=== PATIENT | female | born 1975 | race Caucasian/White ===

== ENCOUNTER 2018-07-13 08:20 | Day surgery (SDC) | payer OTHER, SELFPAY ==
--- NOTE | 2018-07-13 06:52 | W.COLOREPORT ---
Date of service: 07/13/18 Time of Service: 10:08 Colonoscopy Report Date of procedure: 07/13/18 Pre-op diagnosis general: Hx of polyps and Family History of colon Cancer Post-op diagnosis procedure note: same (mild sigmoid diverticulosis, rectal polyp) Procedure: Colonoscopy with polypectomy by cold forceps Surgeon: Tonie Layton Anesthesia proc note operative: MAC (Gary Mike, E [employer] PROJECT MANAGER / ASA 2) Estimated blood loss (mL): 2 Pathology: other (rectal polyp) Complications: None Disposition: same day Indications: Mrs. Quigley is a pleasant 42-year-old female who was seen in the office for another colonoscopy. Her last colonoscopy was in 2012 at which time she had a adenomatous polyp. She also has a family history of colon cancer. Risks, benefits and complications were reviewed with her and she wished to proceed. No guarantees were given or implied. Prep: Miralax/Dulcolax Procedure Start Time: 10:09 Procedure End Time: 10:45 Retraction Time: 23 minutes Findings: 1. Mild diverticulosis of the sigmoid colon 2. Rectal polyp Procedure Description: After informed consent was obtained the patient was taken to the procedure room and placed in a left decubitous position. Monitors were applied and a time out was done. The patients name, date of , procedure, allergies to medications and metal in their body was reviewed. The patient was then sedated. Once sedated and comfortable a rectal exam was done. External exam was normal. Internal exam revealed a normal sphincter tone and no palpable masses. The scope was then introduced and retro-flexed. No internal hemorrhoids were identified. The scope was then advanced to the cecum without difficulty. The TI and appendiceal orifice were identified. The prep was good. The scope was then slowly retracted over 23 minutes back into the rectum. One polyp was removed in the rectum with cold forceps. The scope was removed and the patient was woken up and taken back to Same day surgery in stable condition. The patient tolerated the procedure well and there were no immediate complications. Follow up: The patient should follow up in 5 years unless they develop changes in bowel habits or other new gastrointestinal complaints.
--- NOTE | 2018-07-13 06:54 | PDOC.DSDIS_ITS ---
Discharge Plan Disposition Patient Disposition: HOME Condition: Good Discharge Details Reason For Visit: Hx of polyps, Family history of colon cancer Attending Provider: Tonie Layton Primary Care Provider: Yessenia Alston Home Meds and New Rx's Prescriptions: Continue valacyclovir 1,000 MG tablet 2,000 mg PO Q12H PRN Qty: 32 RF: 4 levothyroxine 88 mcg tablet 88 mcg PO DAILY Qty: 30 RF: 3 multivitamin 1 EACH capsule 1 ea PO DAILY RF: 0 omega 4-khu-tti-fish oil 1 EACH capsule 1 ea PO DAILY RF: 0 Discharge Instructions Instructions: Colonoscopy (DC), Diverticulosis (DC) Additional Instructions: Findings: 1. small polyp 2. mild diverticulosis Follow up: 5 years Please call if you develop: fevers >101.5 Nausea or Vomiting Abdominal pain that is not transient New Medications: Other: 1. Because there will be medication in your system for the next 24 hours, you may feel a little sleepy. Your coordination will be affected. Therefore: a. Do not drive or operate dangerous equipment for 24 hours. b. Do not drink alcohol beverages for 24 hours (not even beer). c. Plan to go home and rest for the day. 2. Generally there are no restrictions on your activity after a day or so has gone by, but you may feel a bit fatigued for a few days. 3 After you arrive home you may have a light meal and return to a normal diet as you can tolerate it without feeling sick to your stomach. 4. After surgery, you may feel pain or discomfort. This should be only transient , but if it persists please contact your doctor. 5. If there are any questions regarding the findings of your procedure, please feel free to contact your doctor. 6. If you are unable to contact your doctor with a problem, contact the hospital at [phone]. 7. Continue all your regular medications unless directed otherwise. I understand the above instructions and have no questions. Signature of Patient or Responsible Adult Escort Date/Time Name of Responsible Adult Escort Signature of Nurse Date/Time Activity:: Activity as Tolerated Diet:: high fiber diet Discharge Orders Discharge Orders: Discharge Order (Routine); Ordered 07/13/18 Ordered By: Tonie Layton DS: Diagnosis Discharge Diagnosis (1) S/P colonoscopy: Status: Acute (2) Diverticulosis: Status: Acute
[2018-07-13 08:40] VITALS: BP 126/90; PULSE 119; RESP 16; TEMP 37; O2SAT 98
[2018-07-13] MEDS: Lactated Ringers 1,000 ML 80 ML IV (08:55)
--- NOTE | 2018-07-13 10:43 | BOWEL_PTH ---
PATIENT: Alan Pinto LOC: [facility] U#:[id number] AGE/SX: 42/F ROOM: RE07/13/[address]: Tonie Layton MD : 1975 BED: DIS: 07/13/2018 SPEC #: [id number] RECD: 07/13/18 12:38 STATUS: JONELLE REQ #: [id number] DAFNE: 07/13/18 10:[address]: Tonie Layton DEPT: Surgical Specimen RECD BY: Ninfa Carty ENTERED: 07/13/18 12:39 SP TYPE: Bowel OTHR DR: Yessenia Alston MD Tissues: 1 - BIOPSY BOWEL Procedures: GROSS AND MICRO LEVEL 4 Comments: [id number]
[2018-07-13 11:35] VITALS: BP 104/70; PULSE 82; RESP 16; TEMP 37.4; O2SAT 100
== END 2018-07-13 12:03 | disposition home or self-care (01) ==
PROVIDERS: PCP Family Medicine; Visit Provider Surgery
PROC: 0DJD8ZZ Inspection of Lower Intestinal Tract, Via Natural or Artificial Opening Endoscopic (ICD-10-PCS; CPT 45378; principal; 2018-07-13 10:15)
DX: Z12.11 Encounter for screening for malignant neoplasm of colon (principal); Z86.010 Personal history of colon polyps; Z80.0 Family history of malignant neoplasm of digestive organs; K57.30 Diverticulosis of large intestine without perforation or abscess without bleeding; K62.1 Rectal polyp
CPT/HCPCS: 45380; 81025; 88305; J2250; J3010

== ENCOUNTER 2019-03-18 07:43 | Outpatient (CLI) | payer OTHER, SELFPAY ==
--- NOTE | 2019-03-18 08:10 | DI.RAD_ITS ---
SYMPTOM/DIAGNOSISs: BACK PAIN M54.9 DORSALGIA LUMBOSACRAL SPINE: The vertebral bodies and disc spaces are intact. The pedicles, spinous and transverse processes are unremarkable. There are degenerative changes involving the facet joints. The sacrum and sacroiliac joints are unremarkable. SUMMARY: Degenerative changes involving the facet joints are most pronounced at L3 through S1. The examination is otherwise unremarkable.
== END 2019-03-18 08:03 ==
PROVIDERS: PCP Family Medicine; Visit Provider Internal Medicine
DX: M54.5 Low back pain (principal); M47.817 Spondylosis without myelopathy or radiculopathy, lumbosacral region
CPT/HCPCS: 72110

== ENCOUNTER 2019-05-21 07:03 | Outpatient (CLI) | payer OTHER, SELFPAY ==
[2019-05-21 08:31] LABS: Glucose 93 mg/dL (70-100); TSH 5.62 uIU/mL (0.36-3.74)
== END 2019-05-21 07:23 ==
PROVIDERS: PCP Family Medicine; Visit Provider Family Medicine
DX: E03.9 Hypothyroidism, unspecified (principal); Z13.1 Encounter for screening for diabetes mellitus
CPT/HCPCS: 36415; 82947; 84443

== ENCOUNTER 2019-08-17 07:02 | Outpatient (CLI) | payer OTHER, SELFPAY ==
[2019-08-17 08:27] LABS: Calculated LDL 157 mg/dL; Cholesterol 224 mg/dL (<200); Glucose 91 mg/dL (74-106); HDL Cholesterol 55 mg/dL (40-60); TSH 4.52 uIU/mL (0.36-3.74); Triglyceride 62 mg/dL (<150)
== END 2019-08-17 07:22 ==
PROVIDERS: PCP Family Medicine; Visit Provider Family Medicine
DX: E03.9 Hypothyroidism, unspecified (principal); Z13.220 Encounter for screening for lipoid disorders; Z13.1 Encounter for screening for diabetes mellitus
CPT/HCPCS: 36415; 80061; 82947; 84443

== ENCOUNTER 2019-12-16 12:36 | Outpatient (REF) | payer OTHER, SELFPAY ==
[2019-12-17 14:21] LABS: Chlamydia Result Negative (Negative); GC Result Negative (Negative)
== END 2019-12-16 12:56 ==
LOC: LBN 12:36
PROVIDERS: PCP Family Medicine; Visit Provider Nurse Practitioner Family
DX: Z11.3 Encounter for screening for infections with a predominantly sexual mode of transmission (principal)
CPT/HCPCS: 87491; 87591

== ENCOUNTER 2019-12-20 03:24 | Outpatient (CLI) | payer OTHER, SELFPAY ==
[2019-12-20 14:06] LABS: TSH 2.25 uIU/mL (0.36-3.74)
[2019-12-21 10:51] LABS: Hepatitis B Surface Ag Negative (Negative)
[2019-12-21 11:06] LABS: HIV-1/2 Ag & Ab Screen Negative (Negative)
[2019-12-21 11:08] LABS: Hepatitis C Ab w Rflx HCV PCR Negative (Negative)
[2019-12-22 11:04] LABS: Syphilis Total Ab w/Reflex Nonreactive (Nonreactive)
== END 2019-12-20 03:44 ==
PROVIDERS: PCP Family Medicine; Visit Provider Nurse Practitioner Family
DX: E03.9 Hypothyroidism, unspecified (principal); Z11.3 Encounter for screening for infections with a predominantly sexual mode of transmission; Z11.4 Encounter for screening for human immunodeficiency virus [HIV]; Z11.59 Encounter for screening for other viral diseases
CPT/HCPCS: 36415; 86803; 87340; 87389; 84443; 86780

== ENCOUNTER 2020-01-04 01:36 | Outpatient (CLI) | payer OTHER, SELFPAY ==
--- NOTE | 2020-01-04 07:45 | DI.MAMMO_ITS ---
EXAM: MG MAMMO SCREENING CLINICAL HISTORY: screening,Z12.39 TECHNIQUE: Bilateral full field digital CC and MLO mammographic images were obtained with 3D tomosyn thesis and utilizing computer aided detection (CAD). COMPARISON: Available for comparison. FINDINGS: Masses/Architectural Distortion: There is a partially obscured round density at the 12 o'clock positi on of the left breast. Microcalcifications: No suspicious pleomorphic-type are seen. Skin Thickening/Nipple Retraction: None. IMPRESSION: 1. Partially obscured round density in the 12 o'clock position of the left breast. 2. This area should be further evaluated with spot compression view. Ultrasound may be indicated at that time. BI-RADS Category 0 - Assessment Incomplete: Need additional imaging evaluation Breast Density - Category C - Heterogeneously dense The mammogram demonstrates the patient's breast tissue is dense. Dense breast tissue is very common a nd is not abnormal but dense breast tissue can make it harder to find cancer on a mammogram. Also, de nse breast tissue may increase their breast cancer risk. This information [facility] the [facility] was provided to the patient to raise their awareness. Use this report when you speak wi th the patient about their risks for breast cancer, which includes their family history. At that time , you may recommend for more screening tests (Ultrasound or MRI) as they might be useful based on the ir risk. A negative radiographic report should not delay biopsy if a dominant or clinically suspicious mass is present. Up to ten percent of cancers are not identified on mammography. A negative report may reinforce clinical impression. Adenosis and dense breasts may obscure an underlying neoplasm. False positive reports average 6 to 10%. Patient will receive a letter notifying them of these results.
== END 2020-01-04 01:56 ==
PROVIDERS: PCP Family Medicine; Visit Provider Nurse Practitioner Family
DX: Z12.31 Encounter for screening mammogram for malignant neoplasm of breast (principal); R92.8 Other abnormal and inconclusive findings on diagnostic imaging of breast
CPT/HCPCS: 77063; 77067

== ENCOUNTER 2020-01-12 01:36 | Outpatient (CLI) | payer OTHER, SELFPAY ==
--- NOTE | 2020-01-12 | DI.US_ITS ---
EXAM: US BREAST LT LIMITED CLINICAL HISTORY: F/U ABNL MAMMO PARTIALLY OBSCURED ROUND DENSITY LT BREAST. TECHNIQUE: Craniocaudal and mediolateral oblique Full Field Digital Mammography views of the left br east with Tomosynthesis and left breast ultrasound. COMPARISON: MG Magnification Views Lt from 07/06/2014 MG Screening Bilat Mammo from 12/13/2015 MG Screening Bilat Mammo from 10/29/2017 MG MG MAMMO SCREENING from 01/04/2020 MG MG MAMMO SCREEN CALL BACK UNI from 01/12/2020 FINDINGS: Mammography/Tomosynthesis: Masses/Architectural Distortion: A large circumscribed nodule is seen in the superior left breast.. Microcalcifictions: No suspicious pleomorphic-type are seen. Stable, benign-appearing calcifications are seen in the anterior breast. Skin Thickening/Nipple Retraction: None. Breast US: Echotexture: Normal appearance of the glandular tissue. Shadowing: No suspicious foci. Cyst: There is a cyst in the 12 o'clock position 3 centimeters from the nipple measuring 3 x 2.3 x 3. 6 cm. Other smaller cysts are seen in the superior breast. No suspicious mass is identified. Solid lesions: None seen. Ductal dilation: None. IMPRESSION: 1. No evidence of malignancy is noted. 2. Unless there is more urgent need, follow-up screening mammography is recommended, as per [place] guidelines. BI-RADS Cat 2 - Benign Findings Breast Density - Category C - Heterogeneously dense The mammogram demonstrates the patient's breast tissue is dense. Dense breast tissue is very common a nd is not abnormal but dense breast tissue can make it harder to find cancer on a mammogram. Also, de nse breast tissue may increase their breast cancer risk. This information about the result of the [facility] mogram report was provided to the patient to raise their awareness. Use this report when you speak wi th the patient about their risks for breast cancer, which includes their family history. At that time , you may recommend for more screening tests (Ultrasound or MRI) as they might be useful based on the ir risk. A negative radiographic report should not delay biopsy if a dominant or clinically suspicious mass is present. Up to ten percent of cancers are not identified on mammography. A negative report may reinforce clinical impression. Adenosis and dense breasts may obscure an underlying neoplasm. False positive reports average 6 to 10%. Patient will receive a letter notifying them of these results.
== END 2020-01-12 01:56 ==
PROVIDERS: PCP Family Medicine; Visit Provider Nurse Practitioner Family
DX: Z12.31 Encounter for screening mammogram for malignant neoplasm of breast (principal); R92.8 Other abnormal and inconclusive findings on diagnostic imaging of breast; N60.12 Diffuse cystic mastopathy of left breast; R92.1 Mammographic calcification found on diagnostic imaging of breast
CPT/HCPCS: 76642; 77063; 77067

== ENCOUNTER 2020-03-14 01:25 | Outpatient (CLI) | payer OTHER, SELFPAY ==
--- NOTE | 2020-03-14 09:15 | DI.US_ITS ---
EXAM: MG MAMMO DIAGNOSTIC UNI AND US BREAST LT LIMITED CLINICAL HISTORY: LEFT BREAST LUMP, N63.20. COMPARISON: MG Screening Bilat Mammo from 12/13/2015 [facility] [place] from 08/28/2016 MG Screening Bilat Mammo from 10/29/2017 MG MG MAMMO SCREENING from 01/04/2020 US US BREAST LT LIMITED from 01/12/2020 MG MG MAMMO SCREEN CALL BACK UNI from 01/12/2020 US US BREAST LT LIMITED from 03/14/2020 TECHNIQUE: Craniocaudal and mediolateral oblique Full Field Digital Mammography views of the left b reast with Computer Aided Diagnosis followed by Tomosynthesis and breast ultrasound. FINDINGS: Mammography/Tomosynthesis: Masses/Architectural Distortion: There has been no visible change in the circumscribed nodule in the superior central left breast. No new masses are seen. Microcalcifications: No suspicious pleomorphic-type are seen. Benign calcifications are again noted i n the subareolar region. Skin Thickening/Nipple Retraction: None. Breast US: Echotexture: Normal appearance of the glandular tissue. Shadowing: No suspicious foci. Cyst: There has been no significant change in the cyst in the superior left breast, 3 cm from nipple. This corresponds to the palpable abnormality. It measures 3.0 x 2.7 x 3.6 cm, not significantly ch anged. Adjacent smaller cyst is noted. Solid lesions: None seen. Ductal dilation: None. IMPRESSION: 1. No evidence of malignancy is noted. Palpable abnormality corresponds to a 3.6 cm cyst. 2. Unless there is more urgent need, follow-up screening mammography is recommended, as per [place] [employer] guidelines. BI-RADS Category 2 - Benign Findings Breast Density - Category C - Heterogeneously dense The mammogram demonstrates the patient's breast tissue is dense. Dense breast tissue is very common a nd is not abnormal but dense breast tissue can make it harder to find cancer on a mammogram. Also, de nse breast tissue may increase their breast cancer risk. This information about the result of the [facility] mogram report was provided to the patient to raise their awareness. Use this report when you speak wi th the patient about their risks for breast cancer, which includes their family history. At that time , you may recommend for more screening tests (Ultrasound or MRI) as they might be useful based on the ir risk. A negative radiographic report should not delay biopsy if a dominant or clinically suspicious mass is present. Up to ten percent of cancers are not identified on mammography. A negative report may reinforce clinical impression. Adenosis and dense breasts may obscure an underlying neoplasm. False positive reports average 6 to 10%. Patient will receive a letter notifying them of these results.
--- NOTE | 2020-03-14 14:51 | DI.MAMMO_ITS ---
EXAM: MG MAMMO DIAGNOSTIC UNI AND US BREAST LT LIMITED CLINICAL HISTORY: LEFT BREAST LUMP, N63.20. COMPARISON: MG Screening Bilat Mammo from 12/13/2015 [facility] [place] from 08/28/2016 MG Screening Bilat Mammo from 10/29/2017 MG MG MAMMO SCREENING from 01/04/2020 US US BREAST LT LIMITED from 01/12/2020 MG MG MAMMO SCREEN CALL BACK UNI from 01/12/2020 US US BREAST LT LIMITED from 03/14/2020 TECHNIQUE: Craniocaudal and mediolateral oblique Full Field Digital Mammography views of the left b reast with Computer Aided Diagnosis followed by Tomosynthesis and breast ultrasound. FINDINGS: Mammography/Tomosynthesis: Masses/Architectural Distortion: There has been no visible change in the circumscribed nodule in the superior central left breast. No new masses are seen. Microcalcifications: No suspicious pleomorphic-type are seen. Benign calcifications are again noted i n the subareolar region. Skin Thickening/Nipple Retraction: None. Breast US: Echotexture: Normal appearance of the glandular tissue. Shadowing: No suspicious foci. Cyst: There has been no significant change in the cyst in the superior left breast, 3 cm from nipple. This corresponds to the palpable abnormality. It measures 3.0 x 2.7 x 3.6 cm, not significantly ch anged. Adjacent smaller cyst is noted. Solid lesions: None seen. Ductal dilation: None. IMPRESSION: 1. No evidence of malignancy is noted. Palpable abnormality corresponds to a 3.6 cm cyst. 2. Unless there is more urgent need, follow-up screening mammography is recommended, as per [place] [employer] guidelines. BI-RADS Category 2 - Benign Findings Breast Density - Category C - Heterogeneously dense The mammogram demonstrates the patient's breast tissue is dense. Dense breast tissue is very common a nd is not abnormal but dense breast tissue can make it harder to find cancer on a mammogram. Also, de nse breast tissue may increase their breast cancer risk. This information about the result of the [facility] mogram report was provided to the patient to raise their awareness. Use this report when you speak wi th the patient about their risks for breast cancer, which includes their family history. At that time , you may recommend for more screening tests (Ultrasound or MRI) as they might be useful based on the ir risk. A negative radiographic report should not delay biopsy if a dominant or clinically suspicious mass is present. Up to ten percent of cancers are not identified on mammography. A negative report may reinforce clinical impression. Adenosis and dense breasts may obscure an underlying neoplasm. False positive reports average 6 to 10%. Patient will receive a letter notifying them of these results.
== END 2020-03-14 01:45 ==
LOC: DI 01:25
PROVIDERS: PCP Family Medicine; Visit Provider Nurse Practitioner Family
DX: N63.20 Unspecified lump in the left breast, unspecified quadrant (principal); Z12.39 Encounter for other screening for malignant neoplasm of breast; R92.1 Mammographic calcification found on diagnostic imaging of breast; R92.2 Inconclusive mammogram; N60.02 Solitary cyst of left breast
CPT/HCPCS: 76642; 77061; 77065; G0279

== ENCOUNTER 2020-04-19 05:12 | Outpatient (CLI) | payer OTHER, SELFPAY ==
[2020-04-19 16:43] LABS: HCT 40.1 % (36.0-46.0); HGB 13.7 g/dL (11.2-15.7); MCH 33.1 pg (27.0-33.0); MCHC 34.2 % (32.0-36.0); MCV 96.9 fL (80-95); MPV 9.6 fL (8.0-11.0); Platelet Count 247 10^3/uL (130-400); RBC 4.14 10^6/uL (3.93-5.22); RDW 11.4 % (11.7-14.6); RDW-SD 40.6 fL; WBC 4.86 10^3/uL (4.4-10.8)
[2020-04-19 19:04] LABS: ALT 26 U/L (14-59); AST 15 U/L (15-37); Albumin 3.9 g/dL (3.4-5.0); Alkaline Phosphatase 63 U/L (46-116); Anion Gap 10.2 mmol/L (3-11); BUN 17 mg/dL (7-18); Bilirubin, Total 0.3 mg/dL (0.2-1.0); CO2 25.8 mmol/L (21.0-32.0); CREATININE 0.77 mg/dL (0.55-1.02); Calcium 8.9 mg/dL (8.5-10.1); Chloride 102 mmol/L (98-107); Glucose 122 mg/dL (74-106); Potassium 3.3 mmol/L (3.5-5.1); Sodium 138 mmol/L (136-145); TSH 1.56 uIU/mL (0.36-3.74); Total Protein 7.3 g/dL (6.4-8.2)
[2020-04-19 19:41] LABS: Iron 70 ug/dL (50-170); Total Iron Binding Capacity 322 ug/dL (250-450); Transferrin Sat 22 % (15-50)
== END 2020-04-19 05:32 ==
PROVIDERS: PCP Family Medicine; Visit Provider Family Medicine
DX: R53.83 Other fatigue (principal)
CPT/HCPCS: 36415; 80053; 85027; 83540; 83550; 84443

== ENCOUNTER 2020-07-26 13:27 | Outpatient (REF) | payer OTHER, SELFPAY ==
[2020-07-29 10:00] LABS: COVID-19 RT-PCR Result NEGATIVE (Negative)
== END 2020-07-26 13:47 ==
LOC: NCHCN 13:27
PROVIDERS: PCP Family Medicine; Visit Provider Physician Assistant Medical
DX: J02.9 Acute pharyngitis, unspecified (principal)
CPT/HCPCS: U0003

== ENCOUNTER 2020-12-19 11:08 | Outpatient (REF) | payer OTHER, SELFPAY ==
--- NOTE | 2020-12-19 10:30 | PAPFT_PTH ---
PATIENT: Alan Pinto LOC: [facility] U#:[id number] AGE/SX: 45/F ROOM: RE12/19/[address]: CARLTON Canas : 1975 BED: DIS: 12/19/2020 SPEC #: [id number] RECD: 12/19/20 13:09 STATUS: JONELLE DIAZ #: [id number] DAFNE: 12/19/20 10:[address]: Ami Galindo DEPT: COUNT INCLUDES THE [facility] Cytology RECD BY: Ninfa Carty ENTERED: 12/19/20 13:09 SP TYPE: PAPFT LIANE DR: Yessenia Alston MD Tissues: 1 - CX/ENDOCX FOR PAP SMEARS Procedures: PAP THIN PREP/UVM Screening HPV DNA PROBE Comments: [id number]
== END 2020-12-19 11:09 | disposition home or self-care (01) ==
LOC: LBN 11:08
PROVIDERS: PCP Family Medicine; Visit Provider Nurse Practitioner Family
DX: Z12.4 Encounter for screening for malignant neoplasm of cervix (principal); Z11.51 Encounter for screening for human papillomavirus (HPV)
CPT/HCPCS: 88142; 87624

== ENCOUNTER 2021-01-16 02:08 | Outpatient (CLI) | payer OTHER, SELFPAY ==
--- NOTE | 2021-01-16 07:55 | DI.MAMMO_ITS ---
Exam(s) MAMMO SCREENING EXAM: MAMMO SCREENING CLINICAL HISTORY: screening TECHNIQUE: Mammograms were interpreted according to the usual protocol including computer analysis w [employer] CAD system, tomosynthesis and C-view imaging. COMPARISON: FINDINGS: The breasts are heterogeneously dense. No dominant mass or clumped microcalcification is identified in either breast. The current examination is compared with previous examinations including December 2019 and there has been no gross interval change in appearance in comparison with the prior studies. IMPRESSION: No specific evidence of malignancy at this time. Routine screening examinations are suggested at yea rly intervals due to the family history of breast carcinoma. BI-RADS Category 1 - Negative Breast Density - Category C - Heterogeneously dense
== END 2021-01-16 02:28 ==
PROVIDERS: PCP Family Medicine; Visit Provider Nurse Practitioner Family
DX: Z12.31 Encounter for screening mammogram for malignant neoplasm of breast (principal); Z80.3 Family history of malignant neoplasm of breast
CPT/HCPCS: 77063; 77067

== ENCOUNTER 2021-11-23 10:21 | Outpatient (REF) | payer OTHER, SELFPAY ==
[2021-11-25 12:13] LABS: COVID-19 RT-PCR UVMMC Result Presumptive Positive (Negative)
== END 2021-11-23 10:22 | disposition home or self-care (01) ==
LOC: LBN 10:21
PROVIDERS: PCP Family Medicine; Visit Provider Family Medicine
DX: Z20.822 Contact with and (suspected) exposure to COVID-19 (principal); J32.9 Chronic sinusitis, unspecified
CPT/HCPCS: U0003

== ENCOUNTER → 2022-03-15 00:46 | Outpatient (CLI) | payer OTHER, SELFPAY ==
--- OUTSIDE RECORDS SUMMARY | 2022-03-15 00:48 | XMS_ITS | Encounter Summary ---
:1975 Author Organization [facility] Address [address] [place] [address] Care Team Providers Name Role Phone Unknown, Provider Primary Care Provider Encounter Details Date Type Department Care Team Description 07/09/2017 Results Only [facility] Marcelino Calero, DO [address] [facility] [address] [place] [address] (Wo rk) Social History Tobacco Use Types Packs/Day Years Used Date Never Assessed Sex Assigned at Date Recorded Not on file documented as of this encounter Plan of Treatment Not on filedocumented as of this encounter Procedures Procedure Name Priority Date/Time Associated Diagnosis Comme [facility] SURGICAL PATHOLOGY Routine 07/09/2017 20:04 Resul ts for this EST procedure are i n the results section. documented in this encounter Results SURGICAL PATHOLOGY (07/09/2017 20:04 EST) Pathology Report: SURGICAL PATHOLOGY REPORT [facility] Reports generated via electronic interface contain diego ginal data; LABORATORY however they are lacking the format of the original re port. SERVICES Caution should be taken when reading/interpreting unfo rmatted reports. Name: ? KRAIG MCGOWAN ? Accession #: ? [id number] ? : ? 1975 (Age: 41) ??F ? Collect Date: ? 07/09/2017 ? Location: ? [facility] ? Receive Date: ? 017 ? Provider: MARCELINO CALERO DO Copy to: SOILA POSADAS MD ? Final Pathologic Diagnosis: AXILLA, RIGHT, MASS, BIOPSY: - Benign breast tissue with fibrocystic changes, inclu ding: - Columnar cell changes. - Apocrine metaplasia. - Microcysts. - Intralobular fibrosis. Document reviewed and electronically signed by: CAROLINE BHAKTA MD Report ??Date: 07/15/2017 12:13 By the signature above, the attending physician certif ies that he/she has personally conducted a gross and/or microscopic examin ation of the described specimens and rendered or confirmed the above diagnosi s. Specimen(s) Received: Right axilla mass Clinical History: Right axilla mass; hormonally sensitive; ? ectopic robert ast tissue Gross Description: ? Received in formalin labelled with proper patient identification (initials W, J) and right axilla mass are multiple fragm ents of ramsey-yellow cauterized lobulated adipose tissue (14 g, 6.2 x 4.2 x 2.1 cm in aggregate). The largest fragment is inked blue. The cut surfaces are composed of yellow adipose tissue with a minimal amount of fibrous tissue. No definitive mass is identified. Intensive Care Ambulance Paramedic sections (approximately 60%) are submit jona in 1-5. CHAMP Chavez (ASCP) 07/11/2017 9:11 AM End of Report Specimen Performing Organization Address City/State/ZIP Code Phon e Number [facility] [address] [place] [address] SERVICES documented in this encounter Visit Diagnoses Not on filedocumented in this encounter Care Teams Herpetologist Relationship Specialty Start Date End Date Unknown, Provider, PCP - General 07/12/13 07/14/18 documented as of this encounter
--- OUTSIDE RECORDS SUMMARY | 2022-03-15 00:48 | XMS_ITS | Encounter Summary ---
:1975 Author Organization [facility] Address [facility] [place] [address] Care Team Providers Name Role Phone Yessenia Alston MD Primary Care Provider Encounter Details Date Type Department Care Team Description 07/11/2014 External Results XRay at [facility] [place] Provider, [facility] [address] [facility] ANISHA Butler [phone] Social History Tobacco Use Types Packs/Day Years Used Date Never Smoker Alcohol Use Standard Drinks/Week Comments Yes 0 (1 standard drink = 0.6 oz pure alcoho l) Sex Assigned at Date Recorded Not on file documented as of this encounter Plan of Treatment Not on filedocumented as of this encounter Procedures Procedure Name Priority Date/Time Associated Diagnosis Comme nts MAMMOGRAM SCAN Routine 07/06/2014 MAMMOGRAM SCAN Routine 06/17/2014 documented in this encounter Results Scan Doc: Mammogram (07/06/2014) Anatomical Region Laterality Modality Other Narrative This result has an attachment that is no t available. Scanning Provider MEDIA MGR SCAN EXT ORDR/RSLT Scan Doc: Mammogram (06/17/2014) Anatomical Region Laterality Modality Other Narrative This result has an attachment that is no t available. Scanning Provider MEDIA MGR SCAN EXT ORDR/RSLT documented in this encounter Visit Diagnoses Not on filedocumented in this encounter Care Teams Credit Control Officer Relationship Specialty Start Date End Date Yessenia Alston MD PCP - General 05/19/[address] [place] [address] documented as of this encounter
--- OUTSIDE RECORDS SUMMARY | 2022-03-15 00:48 | XMS_ITS | Encounter Summary ---
:1975 Author Organization [facility] [place] [address] Care Team Providers Name Role Phone Yessenia Alston MD Primary Care Provider Encounter Details Date Type Department Care Team Description 04/06/2020 Hospital Encounter Mammography at [facility], Fibrocystic breast changes, left; [facility] Nidhi Perry APRN Large mass of breast [address] [place], [place] CENTER [address] GENERAL SURGERY [phone] [place] [address] Social History Tobacco Use Types Packs/Day Years Used Date Never Smoker Alcohol Use Standard Drinks/Week Comments Yes 0 (1 standard drink = 0.6 oz pure alcoho l) Sex Assigned at Date Recorded Not on file documented as of this encounter Medications at Time of Discharge Medication Sig Dispensed Refills Start Date End Date levothyroxine (SYNTHROID) Take 88 mcg by mouth 0 88 mcg tablet daily. multivitamin (THERAGRAN) Take 1 tablet by 0 tablet mouth daily. DOCOSAHEXANOIC ACID/EPA Take 2 capsules by 0 (FISH OIL ORAL) mouth daily. ERGOCALCIFEROL, VITAMIN D2, Take by mouth daily. 0 (VITAMIN D ORAL) CALCIUM CARBONATE (CALCIUM Take 1,200 mg by 0 600 ORAL) mouth daily. documented as of this encounter Plan of Treatment Not on filedocumented as of this encounter Procedures Procedure Name Priority Date/Time Associated Diagnosis Comme nts MAMMO BREAST US Routine 04/06/2020 9:26 AM Fibrocystic breast Results for this LIMITED LEFT EDT changes, left procedure are in Large mass of breast the res ults section. documented in this encounter Results US Breast Limited Left (04/06/2020 9:26 AM EDT) Anatomical Region Laterality Modality Breast Left Mammography Specimen (Source) Anatomical Location Collection Method / Collectio n Time Received Time / Laterality Volume Impressions 04/06/2020 9:46 AM EDT No sonographic change in appearance of the 3.4 cm left breast simple cyst. The patient is not experiencing pain or disc omfort and declined a cyst aspiration. Resume annual screening. BI-RADS Category 2: Benign Findings I have personally reviewed the image(s) and the resident's interpretation and agree with the findings, Yoly french at 04/06/2020 9:46 AM Thank you for letting us participate in the care of this patient. For questions regarding this report, please contact marian number below. ? Narrative 04/06/2020 9:46 AM EDT EXAMINATION: US ??BREAST LIMITED LEFT CLINICAL HISTORY: Lg cyst noted on imagi ng at [facility] in December and February 2020 Possible aspiration TECHNIQUE: High-resolution ultrasound of the left b reast in the area of concern was performed. COMPARISON: This study was compared with prior image s, including mammogram and ultrasound from 03/14/2020 and 01/12/2020. FINDINGS: High-resolution ultrasound of the left b reast demonstrates a 3.4 x 2.8 x 2.8 cm benign simple cyst, stable in size and a ppearance compared to 01/12/2020. There are a few smaller adjacent simple cysts. There is no evidence of discrete solid lesion or abnormal acoustical shadowing. Nidhi Epstein PODIATRIST IMG MAMMO ORDERABLES documented in this encounter Visit Diagnoses Diagnosis Fibrocystic breast changes, left Large mass of breast documented in this encounter Care Teams Hogshead Filler Relationship Specialty Start Date End Date Yessenia Alston MD PCP - General 05/19/[address] [place] [address] documented as of this encounter
--- OUTSIDE RECORDS SUMMARY | 2022-03-15 00:48 | XMS_ITS | Encounter Summary ---
:1975 Author Organization [facility] [place] [address] Care Team Providers Name Role Phone Yessenia Alston MD Primary Care Provider Encounter Details Date Type Department Care Team Description 10/29/2017 Ancillary Procedure Radiology Library at Elise Alston [facility] [address] [address] [phone] Social History Tobacco Use Types Packs/Day Years Used Date Never Smoker Alcohol Use Standard Drinks/Week Comments Yes 0 (1 standard drink = 0.6 oz pure alcoho l) Sex Assigned at Date Recorded Not on file documented as of this encounter Plan of Treatment Not on filedocumented as of this encounter Procedures Procedure Name Priority Date/Time Associated Diagnosis Comme nts FILM LIBRARY Routine 10/29/2017 12:00 AM Results for this STORAGE ONLY MAMMO EDT procedure are in the results section. documented in this encounter Results Film Library- Storage Only Mammo (10/29/2017 12:00 AM EDT) Specimen (Source) Anatomical Location Collection Method / Collectio n Time Received Time / Laterality Volume Narrative RAD - 03/16/2020 2:29 PM EDT This exam is auto-finalizing. It's purpo se is for storage only. Yessenia Alston MD G FILM LIBRARY ORDERABLES Performing Organization Address City/State/ZIP Code Phon e Number RAD [place], [place] documented in this encounter Visit Diagnoses Not on filedocumented in this encounter Care Teams Experimental Box Tester Relationship Specialty Start Date End Date Yessenia Alston MD PCP - General 05/19/[address] [place] [address] documented as of this encounter
--- OUTSIDE RECORDS SUMMARY | 2022-03-15 00:48 | XMS_ITS | Encounter Summary ---
:1975 Author Organization [facility] [place] [address] Care Team Providers Name Role Phone Yessenia Alston MD Primary Care Provider Encounter Details Date Type Department Care Team Description 07/06/2014 Orders Only Radiology Sinena Smiley MD [facility] [place] [address] NUCLEAR MEDICINE [phone] [place], [place] [address] (Wo rk) Social History Tobacco Use Types [...] Associated Diagnosis Comme nts FILM LIBRARY Routine 07/06/2014 10:55 AM Results for this STORAGE ONLY MAMMO EST procedure are in the results section. documented in this encounter Results Film Library- Storage only Mammo (07/06/2014 10:55 AM EST) Anatomical Region Laterality Modality Other Specimen (Source) Anatomical Collection Method Collection Time Re ceived Time Location / / Volume Laterality 07/06/2014 10:55 AM EST Narrative 07/11/2014 11:12 AM EST This is a Non-reportable exam Procedure Note BELA, UNSIGNED REPORT - 07/11/2014Formatt ing of this note might be different from the original. This is a Non-reportable exam Sienna Smiley MD IMG FILM LIBRARY ORDERABLES documented in this encounter Visit Diagnoses Not on filedocumented in this encounter Care Teams Take Away Man Relationship Specialty Start Date End Date Yessenia Alston MD PCP - General 05/19/[address] [place] [address] documented as of this encounter
--- OUTSIDE RECORDS SUMMARY | 2022-03-15 00:48 | XMS_ITS | Encounter Summary ---
:[address] [facility] [place] [address] Care Team Providers Name Role Phone Yessenia Alston MD Primary Care Provider Reason for Visit Consultation (Routine) - Closed Specialty Diagnoses / Procedures Referred By Contact Refer red To Contact Family Medicine / Diagnoses Breast lump or mass CBE normal imaging , papl lump Ami Galindo APRN Huntley-Smith, Carol General Surgery Procedures NEW PATIENT [address], [employer] [facility] [address] GENERAL SURGERY [place], [place] [address] Phone: Fax: Referral ID Status Reason Start Date Expiration Date Visits Requ ested Visits Authorized [id number] Closed 04/03/2020 04/03/2021 1 1 Encounter Details Date Type Department Care Team Description 04/03/2020 Office Visit General Surgery at [facility], Camila stic breast changes, left; [facility] Nidhi Perry APRN Large mass of breast [facility] [address] [place] GENERAL SURGERY [address] [place] [address] [phone] Social History Tobacco Use Types Packs/Day Years Used Date Never Smoker Alcohol Use Standard Drinks/Week Comments Yes 0 (1 standard drink = 0.6 oz pure alcoho l) Sex Assigned at Date Recorded Not on file documented as of this encounter Progress Notes Nidhi Epstein APRN - 04/03/2020 8:30 AM EDT Images from the original note were not included. Patient ID: Alan Quigley is a 44 y.o. female who is seen at the request of Ami Galindo APRN for evaluation of a left breast lump. HPI: Alan has a history of fibrocystic breast tissue on the left, but had never been able to feel any masses until 2-3 weeks ago. She denies any skin changes, breast trauma, prior breast surgery or nipple discharge. Imaging performed: left mammogram with focused left ultrasound at [facility] on 03/14/2020 was interpreted as BI-RADS Category 2 with heterogeneously dense breasts. This was compared to prior images on 01/04/2020 which note a 3 x 2.3 x 3.6 cm cyst in the upper left breast with smaller adjacent cysts. She has not had cysts aspirated or breast biopsies in the past. She has had a biopsy in her right axilla on 07/09/2017 with benign finding. She does do occasional self-breast exams. She denies any headaches or significant weight changes. No new chest pain or difficulty breathing. No new bony pain or tenderness. She describes her health as good. She has no new or concerning complaints of fatigue, cardiovascular, or respiratory symptoms. All other ROS are negative. 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 She does not smoke; social ETOH. PMHx: Noncontributory. PSHx: Noncontributory Physical Exam: General appearance: Alert, well-appearing, well-developed female in no acute distress. Skin: Warm and dry. Head: Normocephalic, atraumatic Neck: Soft and supple without masses or adenopathy. Cardiovascular: Normal rate, regular rhythm and normal heart sounds. No murmur heard. Pulmonary: Effort normal and breath sounds normal. No respiratory distress, cough, or wheezing. Breasts: Both breasts appear normal. There is a large, firm mass in the upper central left breast ~ 4.5 x 3 cm at the area of the known cyst. No tenderness, dimpling, erythema, or other skin changes ineither breast. No nipple discharge or other nipple changes. No palpable axillary lymph nodes bilaterally. The patient's breasts are large and asymmetric with left slightly larger than the right. The nipples are everted. There are no skin changes or dimpling noted in either breast. Musculoskeletal: Full ROM in upper extremities without lymphedema. Neurological: Alert and oriented x 4. Mood is euthymic and appropriate to the situation. JEANNE Risk: Breast Cancer Risk (JEANNE) Scores 04/03/2020 Lifetime Risk of Patient 10.5% Average Lifetime Risk 12% 5-Year Risk of Patient 1.1% Average 5-Year Risk 0.9% Recommend Genetic Risk Assessment w/B-RST 2% (if FHx + for breast cancer <50, or ovarian cancer Assessment: Clinical breast exam notable for fibrocystic / fibroglandular breast tissue with a large palpable mass in left upper central breast consistent with US findings of a simple cyst. Due to it's size, will send her to Radiology to discuss aspiration. 5 Year JEANNE Risk insufficiently high to warrant consideration for chemoprevention (< 1.7%). Lifetime JEANNE Risk insufficently high to warrant adjunctive MRI at this time (<20%). Plan: 1. Fibrocystic breast changes, left 2. Large mass of breast - US Breast Limited Left; 04/06/2020 We discussed the natural history and management of breast cysts to include aspiration or observation. She is interested in aspiration as it now interferes with her ability to perform a good self exam. We discussed possible outcomes of diagnostic imaging to include completely benign imaging, Category 3 imaging, or the need for biopsy. I discussed the significance of Category 3 imaging. I explained that approximately 98% of the time what the radiologist is seeing is benign but prefers to perform interval imaging rather than no further imaging or to wait a year. It is frequently suggested that most women with Category 3 imaging undergo interval imaging (usually every 6 months) for a period of 1-2 years to insure stability of what is being seen. Eventually Category 3 imaging gets downgraded to Category 1 or 2, and less often gets upgraded to a Category 4. I suggested she follow radiology recommendations a this time. I have discussed my assessment and recommendations with Ms. Quigley to include occasional self-breast exams and annual clinical breast exams. She is interested in getting her mammograms here at [facility] fromnow on. I am willing to follow her clinically with a breast exam when she returns for interval imaging, but this is not essential. At a minimum, I suggest she have an annual breast exam at the time of her screening mammogram. I then discussed nonpharmacologic measures that she can take to decrease her risk of developing breast cancer, to include the following: ?? Get at least 30 minutes of moderate intensity physical activity above normal activity on most days of the week to reduce the risk of chronic disease in adulthood. Walking is a good choice. You also may want to do other activities, such as running, swimming, cycling, or playing tennis or team sports. ?? Do strength training exercises at least twice a week to maintain muscle and bone health. ?? Drink alcohol in moderation, if at all. That means no more than 1 drink a day for women or 2 per day for men. ?? Make healthy eating choices: 5+ servings of fruits and vegetables and 2+ servings of dairy per day. Minimize simple carbohydrates, sugars, and processed foods. ?? Normal BMI < 25 for individuals under 65 years old; 22-30 for > 65 years old. All questions were answered to the patient's satisfaction and they state understanding and agreementwith today's treatment plan. They are encouraged to follow up if symptoms worsen or fail to improve as expected, or if they develop other concerning symptoms. Nidhi Epstein APRN Surgical Oncology P [phone] F [phone] [facility] documented in this encounter Plan of Treatment Not on filedocumented as of this encounter Results US Breast Limited Left [...] For questions regarding this report, please contact e number below. ? Electronically signed by: Yoly franz, [facility] ([phone]), at 04/06/2020 9:46 AM Narrative 04/06/2020 9:46 AM EDT EXAMINATION: US ??BREAST LIMITED LEFT CLINICAL HISTORY: Lg cyst noted on imagi ng at [facility] in December and February 2020 Possible aspiration [...] lesion or abnormal acoustical shadowing. Nidhi Epstein APRN IMG MAMMO ORDERABLES documented in this encounter Visit Diagnoses Diagnosis Fibrocystic breast changes, left Large mass of breast Fibrocystic breast changes, left Large mass of breast documented in this encounter Care Teams Classroom Instructional Aide Relationship Specialty Start Date End Date Yessenia Alston MD PCP - General 05/19/[address] [place] [address] [address] [place] [address] documented as of this encounter
--- OUTSIDE RECORDS SUMMARY | 2022-03-15 00:48 | XMS_ITS | Encounter Summary ---
:1975 Author Organization [facility] Address [address] [place] [address] Care Team Providers Name Role Phone Unavailable Primary Care Provider Unavailable Encounter Details Date Type Department Care Team Description 11/18/2012 Results Only [facility] Tona Blum, MANUFACTURING OPERATIONS MANAGER [phone] [place], [place] [address] (Wo rk) Social History Tobacco Use Types Packs/Day Years Used Date Never Assessed Sex Assigned at Date Recorded Not on file documented as of this encounter Plan of Treatment Not on filedocumented as of this encounter Procedures Procedure Name Priority Date/Time Associated Diagnosis Comme nts PAP TEST- RESULT Routine 11/18/2012 0:00 EDT Resu lts for this ONLY procedure are i n the results section. documented in this encounter Results PAP TEST- RESULT ONLY (11/18/2012 0:00 EDT) Pathology Report: CYTOPATHOLOGY REPORT [facility] Reports generated via electronic interface contain diego ginal data; however they are lacking the format of the original re port. Caution should be taken when reading/interpreting unfo rmatted reports. Name: ? MYKE MCGOWAN ? Accession #: ? [id number] : ? 1975 (Age: 37) ??F ?Collect Date: ? 04/0 10/2012 Location: ? [facility] ? Receive Date : ? 11/20/2012 Provider: ?TONA BLUM MANUFACTURING OPERATIONS MANAGER Copy to: ? Specimen/Source: ? Pap Test, Cervix/Endocervix, ThinPrep Imaging System with manual evaluation Last Menstrual Period: ? Hormonal/Contraceptive Status: ? Intrauterine device: mirena ? SPECIMEN ADEQUACY ? Satisfactory for Evaluation - transformation zone component present GENERAL CATEGORIZATION ? Negative for Intraepithelial Lesion or Malignan cy ? Document reviewed and electronically signed by: ? Marisabel Barone, ERVIN(ASCP)(IAC) ? Report Date: ??11/25/2012 12:25 End of Report Specimen Performing Organization Address City/State/ZIP Code Phon e Number [facility] [address] [place] [address] SERVICES [facility] [address] [place] [address] documented in this encounter Visit Diagnoses Not on filedocumented in this encounter
--- OUTSIDE RECORDS SUMMARY | 2022-03-15 00:48 | XMS_ITS | Encounter Summary ---
:1975 Author Organization [facility] [place] [address] Care Team Providers Name Role Phone Yessenia Alston MD Primary Care Provider Encounter Details Date Type Department Care Team Description 01/12/2020 Ancillary Procedure Radiology Library at [facility] Al[facility] [place] [address] [address] [phone] Social History Tobacco Use Types Packs/Day Years Used Date Never Smoker Alcohol Use Standard Drinks/Week Comments Yes 0 (1 standard drink = 0.6 oz pure alcoho l) Sex Assigned at Date Recorded Not on file documented as of this encounter Plan of Treatment Not on filedocumented as of this encounter Procedures Procedure Name Priority Date/Time Associated Diagnosis Comme nts FILM Routine 01/12/2020 12:00 AM Results for this LIBRARY-STORAGE EDT procedure ar e in ONLY US BREAST the results section. documented in this encounter Results Film Library Storage Only US Breast (01/12/2020 12:00 AM EDT) Specimen (Source) Anatomical Location Collection Method / Collectio n Time Received Time / Laterality Volume Narrative RAD - 03/16/2020 2:11 PM EDT This exam is auto-finalizing. It's purpo se is for storage only. Yessenia Alston MD IMG FILM LIBRARY ORDERABLES Performing Organization Address City/State/ZIP Code Phon e Number [facility] [place], [place] documented in this encounter Visit Diagnoses Not on filedocumented in this encounter Care Teams Geological Aide Relationship Specialty Start Date End Date Yessenia Alston MD PCP - General 10/2/[address] [place] [address] documented as of this encounter
--- OUTSIDE RECORDS SUMMARY | 2022-03-15 00:48 | XMS_ITS | Encounter Summary ---
:1975 Author Organization [facility] Address [address] [place] [address] Care Team Providers Name Role Phone Unknown, Provider Primary Care Provider Encounter Details Date Type Department Care Team Description 11/24/2015 Results Only [facility] Maritza Pak MD [phone] [address] [facility] [place] [address] Social History Tobacco Use Types Packs/Day Years Used Date Never Assessed Sex Assigned at Date Recorded Not on file documented as of this encounter Plan of Treatment Not on filedocumented as of this encounter Procedures Procedure Name Priority Date/Time Associated Diagnosis Comme nts PAP TEST- RESULT Routine 11/24/2015 0:00 EDT Resu lts for this ONLY procedure are i n the results section. documented in this encounter Results PAP TEST- RESULT ONLY (11/24/2015 0:00 EDT) Pathology Report: CYTOPATHOLOGY REPORT [facility] Reports generated via electronic interface contain diego ginal data; SERVICES however they are lacking the format of the original re port. Caution should be taken when reading/interpreting unfo rmatted reports. Name: ? KRAIG MCGOWAN ? Accession #: ? [id number] ? : ? 1975 (Age: 40) ??F ?Collect Date: ? 2015 ? Location: ? [facility] ? Receive Date: ? 11/27/19 16 ? Provider: MARITZA PASCUAL MD Copy to: SOILA POSADAS MD ? Final Report SPECIMEN ADEQUACY ? Satisfactory for Evaluation - transformation zone component present GENERAL CATEGORIZATION ? Negative for Intraepithelial Lesion or Malignan cy INTERPRETATION ? Fungal organisms pres ent morphologically consistent with Sarah species. Specimen/Source: ??Pap Test, Cervix/Endocervix, ThinPr ep Imaging System with manual evaluation Document reviewed and electronically signed by: ? Latonia Fonseca, [facility](ASCP) ? Report ??Date: 12/04/2015 14:22 HPV with Pap Test ? Date Ordered: ? 12/04/2015 ? Status: ?? Signed Out ?Date Complete: ? 12/06/2015 ? By: ??Sy stem Interface ? Date Reported: ? 12/06/2015 ? Interpretation RESULT: Positive for high or intermediate risk HPV. E6 OR E7 mRNA from one or more types of HPV types 16,1 8,31, 33,35,39,45,51,52,56,58,59,66, and 68 is detected by wood lathe operator mediated amplification. High and intermediate risk HPV types are associated wi th most squamous intraepithelial lesions and cervical can cers. Comments Document reviewed and electronically signed by: ? System Interface ? Report date: 12/06/2015 By the signature above, the attending physician certif ies that he/she has personally conducted a gross and/or microscopic examin ation of the described specimens and rendered or confirmed the above diagnosi s. End of Report Specimen Performing Organization Address City/State/ZIP Code Phon e Number [facility] [address] [place] [id number] SERVICES documented in this encounter Visit Diagnoses Not on filedocumented in this encounter Care Teams Flavor Tank Tender Relationship Specialty Start Date End Date Unknown, Provider, PCP - General 07/12/13 07/14/18 documented as of this encounter
--- OUTSIDE RECORDS SUMMARY | 2022-03-15 00:48 | XMS_ITS | Encounter Summary ---
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 HUMAN PAPILLOMAVIRUS Today 12/19/2020 10:30 Encounter for ot her Results for this (HPV) DETECTION-HIGH EDT general examination procedure are in RISK TYPES the results section. documented in this encounter Results HUMAN PAPILLOMAVIRUS (HPV) DETECTION-HIGH RISK TYPES (12/19/2020 10:30 EDT) Human Papillomavirus NegativeComment: No Negative [facility] (HPV) Detection-High E6 or E7 mRNA is CENTER LABORATOR Y Types detected from HPV SERVICES types 16,18,31,33,35,39,45 ,51,52,56,58,59,66, and 68 by roll edge stitcher hand mediated amplification. Specimen Pap Test - Cervix and/or Endocervix Performing Organization Address City/State/ZIP Code Phon e Number [facility] [address] [place] [address] SERVICES PAP TEST (12/19/2020 10:30 EDT) Specimens A. Cervix and/or [facility] Endocervix , ThinPrep CENTER Imaging System with LABORATORY Manual Evaluation SERVICES Specimen Adequacy Satisfactory for [facility] Evaluation - CENTER transformation zone LABORATORY component present SERVICES General Negative for [facility] Categorization intraepithelial CENTER lesion or malignancy LABORATORY SERVICES Attestation . [facility] Electronically CENTER signed by Vijaya soni LABORATORY ERVIN Javed(ASCP) o n SERVICES 12/27/2020 at 07 45 Clinical History See below [facility] SERVICES HPV The result for the Human Pap illomavirus (HPV) Detection-High Risk Types is Negative. No E6 or E7 mRNA is detected from HPV types 16,18,31,33,35,39,45,51,52,56,58,59,66, and 68 by roll edge stitcher hand mediated [facility] amplification.Testing was pe rformed on specimen [id number] and was resulted on 12/27/2020 0742 EDT by BELA, LAB INSTRUMENT RESULTS IN [facility] LABORATORY SERVICES Performing Lab [facility] SERVICES Scanned Images [facility] SERVICES Specimen Pap Test - Cervix and/or Endocervix Performing Organization Address City/[facility]/ZIP Code Phon e Number [facility] [address] [place] [address] SERVICES documented in this encounter Visit Diagnoses Diagnosis Encounter for other general examination documented in this encounter Additional Health Concerns Infection Onset Date Last Indicated Resolved Time COVID-19 11/23/2021 11/23/2021 12/13/2021 22:15 EDT documented as of this encounter Care Teams Chief Mechanical Officer Relationship Specialty Start Date End Date Yessenia Alston MD PCP - General 07/15/18 [address] [place], [place] [id number] documented as of this encounter
--- OUTSIDE RECORDS SUMMARY | 2022-03-15 00:48 | XMS_ITS | Encounter Summary ---
:1975 Author Organization [facility] Address [address] [place] [address] Care Team Providers Name Role Phone Unknown, Provider Primary Care Provider Encounter Details Date Type Department Care Team Description 07/09/2013 Results Only [facility] Marcelino Calero , Laboratory Services - [address] [place] [address] [place], [place] [id number] [phone] Social History Tobacco Use Types Packs/Day Years Used Date Never Assessed Sex Assigned at Date Recorded Not on file documented as of this encounter Plan of Treatment Not on filedocumented as of this encounter Procedures Procedure Name Priority Date/Time Associated Diagnosis [facility] SURGICAL PATHOLOGY Routine 07/09/2013 13:31 Resul ts for this EST procedure are i n the results section. documented in this encounter Results SURGICAL PATHOLOGY (07/09/2013 13:31 EST) Pathology Report: SURGICAL PATHOLOGY REPORT SUDHEER DOW Reports generated via electronic interface contain diego ginal data; LAB however they are lacking the format of the original re port. Caution should be taken when reading/interpreting unfo rmatted reports. Name: ? KRAIG MCGOWAN ? Accession #: ? [id number] ? : ? 1975 (Age: 37) ??F ? Collect Date: ? 07/09/2013 ? Location: ? [facility] ? Receive Date: ? 013 ? Provider: MARCELINO CALERO DO Copy to: SOILA POSADAS MD ? Final Pathologic Diagnosis: A. COLON, CECUM, POLYP, BIOPSY: - ??Tubular adenoma. B. STOMACH, ANTRUM, BIOPSY: - ??Reactive gastropathy. - ??Focal intestinal metaplasia. - ??No H. pylori-like microorganisms identified on rou luiz H&E staining. C. DUODENUM, BIOPSY: - ??Focal peptic duodenitis. See comment. D. ESOPHAGUS, DISTAL, BIOPSY: - ??Squamocolumnar mucosa with reactive changes. - ??Negative for intestinal metaplasia. Comment: Villous height and architecture are with in normal limits, there is no increase in intraepithelial lymphocytes and no microorganisms a re identified. Dr. Denny 07/14/2013 01:07 PM Document reviewed and electronically signed by: SKY NAGY MD Report ??Date: 07/14/2013 15:02 By the signature above, the attending physician certif ies that he/she has personally conducted a gross and/or microscopic examin ation of the described specimens and rendered or confirmed the above diagnosi s. Specimen(s) Received: A. ??Cecal polyp B. ??Gastric antrum bx C. ??Duodenal bx D. ??Distal esophagus bx Clinical History: Bloating; F/H colon cancer Gross Description: A. ?Received in formalin labelled with proper p atient identification (initials W, J) and cecal polyp are tw o pink-ramsey tissues (0.3 x 0.2 x 0.1 cm and 0.6 x 0.1 x 0.1 cm). Entirely submitted in A1. B. ?Received in formalin labelled with proper p atient identification (initials W, J) and antrum bxs gastric are two pink-ramsey tissues (0.3 x 0.3 x 0.2 cm and 0.4 x 0.3 x 0.2 cm). Entirely submitted in B1. C. ?Received in formalin labelled with proper p atient identification (initials W, J) and duodena l bxs are ten pink-ramsey tissues (0.2 x 0.2 x 0.2 cm to 0.5 x 0.3 x 0.2 cm). Entirely submitted in C1-C4. D. ?Received in formalin labelled with proper p atient identification (initials W, J) and distal esophagus bx are two ramsey-white and pink-ramsey tissues (0.4 x 0.2 x 0.1 cm and 0.7 x 0.2 x 0.1 cm). Entirely submitted in D1. Brigida Zhao 07/12/2013 02:16 PM End of Report Specimen Performing Organization Address City/State/ZIP Code Phon e Number [facility] [address] [place] [address] SERVICES [facility] [address] [place] [address] documented in this encounter Visit Diagnoses Not on filedocumented in this encounter Care Teams Information Systems Supervisor Relationship Specialty Start Date End Date Unknown, Provider, PCP - General 07/12/13 07/14/18 documented as of this encounter
--- OUTSIDE RECORDS SUMMARY | 2022-03-15 00:48 | XMS_ITS | Encounter Summary ---
:1975 Author Organization [facility] Address [address] [place] [address] Care Team Providers Name Role Phone Yessenia Alston MD Primary Care Provider Encounter Details Date Type Department Care Team Description 07/06/2014 Ancillary Procedure Radiology Library at [facility] [address] [id number] [phone] Social History Tobacco Use Types Packs/Day Years Used Date Never Smoker Alcohol Use Standard Drinks/Week Comments Yes 0 (1 standard drink = 0.6 oz pure alcoho l) Sex Assigned at Date Recorded Not on file documented as of this encounter Plan of Treatment Not on filedocumented as of this encounter Procedures Procedure Name Priority Date/Time Associated Diagnosis Comme nts FILM LIBRARY Routine 07/06/2014 12:00 AM Results for this STORAGE ONLY MAMMO EST procedure are in the results section. documented in this encounter Results Film Library- Storage Only Mammo (07/06/2014 12:00 AM EST) Specimen (Source) Anatomical Location Collection Method / Collectio n Time Received Time / Laterality Volume Narrative RAD - 03/16/2020 2:20 PM EDT This exam is auto-finalizing. It's purpo se is for storage only. Yessenia Alston MD G FILM LIBRARY ORDERABLES Performing Organization Address City/State/ZIP Code Phon e Number RAD [place], [place] documented in this encounter Visit Diagnoses Not on filedocumented in this encounter Care Teams Senior Accounting Specialist Relationship Specialty Start Date End Date Yessenia Alston MD PCP - General 05/19/[address] [place] [address] documented as of this encounter
--- OUTSIDE RECORDS SUMMARY | 2022-03-15 00:48 | XMS_ITS | Encounter Summary ---
:1975 Author Organization [facility] [place] [address] Care Team Providers Name Role Phone Yessenia Alston MD Primary Care Provider Encounter Details Date Type Department Care Team Description 01/12/2020 Ancillary Procedure Radiology Library at Elise Alston [facility] [address] [address] [id number] [phone] Social History Tobacco Use Types Packs/Day Years Used Date Never Smoker Alcohol Use Standard Drinks/Week Comments Yes 0 (1 standard drink = 0.6 oz pure alcoho l) Sex Assigned at Date Recorded Not on file documented as of this encounter Plan of Treatment Not on filedocumented as of this encounter Procedures Procedure Name Priority Date/Time Associated Diagnosis Comme nts FILM LIBRARY Routine 01/12/2020 12:05 AM Results for this STORAGE ONLY MAMMO EDT procedure are in the results section. documented in this encounter Results Film Library- Storage Only Mammo (01/12/2020 12:05 AM EDT) Specimen (Source) Anatomical Location Collection Method / Collectio n Time Received Time / Laterality Volume Narrative RAD - 03/16/2020 2:12 PM EDT This exam is auto-finalizing. It's purpo se is for storage only. Yessenia Alston MD G FILM LIBRARY ORDERABLES Performing Organization Address City/State/ZIP Code Phon e Number [facility] [place], [place] documented in this encounter Visit Diagnoses Not on filedocumented in this encounter Care Teams Project Internship Relationship Specialty Start Date End Date Yessenia Alston MD PCP - General 05/19/[address] [place] [address] documented as of this encounter
--- OUTSIDE RECORDS SUMMARY | 2022-03-15 00:48 | XMS_ITS | Encounter Summary ---
:1975 Author Organization [facility] Address [address] [place] [address] Care Team Providers Name Role Phone Yessenia Alston MD Primary Care Provider Encounter Details Date Type Department Care Team Description 07/27/2020 Lab Requisition [facility] Outr Resulting Lab, Pathology & Laboratory Provider [facility] [address] [place], [place] [phone] Social History Tobacco Use Types Packs/Day Years Used Date Never Assessed Sex Assigned at Date Recorded Not on file documented as of this encounter Plan of Treatment Not on filedocumented as of this encounter Procedures Procedure Name Priority Date/Time Associated Comments Diagnosis DO NOT ORDER Today 07/26/2020 9:30 EST Results for this STANDALONE - BROAD procedure are in COVID TEST the results section. COVID-19 TESTING Routine 07/26/2020 9:30 EST Resu lts for this procedure are i n the results section. documented in this encounter Results DO NOT ORDER STANDALONE - BROAD COVID TEST (07/26/2020 9:30 EST) COVID-19 rt-PCR NEGATIVE Negative [facility] Result Comment: LABORATORY 2019-novel Coronavirus (2019 -nCoV) not detected by the qRT-PCR assay. Consider testing for other respiratory viruses or re-collecting for 2019-nCoV testing. Note: Optimum timing for peak viral levels du ring infections caused by 20 -nCoV have not been determined. Collection of multiple specimens from the same patient may be necessary to detect the virus. Limitations Positive results are indicat ibrahima of active infection with SARS-CoV-2 but do not rule out bacterial infection or co-infection with other viruses. The agent detected may not be the definite cause of diseas e. In addition, detection of viral RNA may not indicate the presence of infectious virus or that SARS-CoV-2 is the causative agent for clinical symptoms. Negative results do not prec lude SARS-CoV-2 infection and should not be used as the sole basis for patient management decisions. Negative results must be combined with clinical observations, patient his tory, and epidemiological in formation. False negative results may also occur if amplification inhibitors are present in the specimen or if inadequate numbers of organisms are present in the specimen. Op timum specimen types and sal ing for peak viral levels during infections caused by SARS-CoV-2 have not been fully determined. Collection of multiple specimens (types and time points) from the same patient may be necessary to detect the virus. The test was validated for u se with upper respiratory specimens obtained via nasopharyngeal or oropharyngeal swabs in VTM, UTM, M4, M5, M6, saline, and MTM media. The performance of this test has not be en established for other spe cimens. Specimens collected using other FDA recommended Specimen Collection Materials listed in the FDA COVID-19 [employer] communication (November 11, 2019) are pr ocessed with the caveat that they were not all validated for use with this test and the result must be interpreted in this context. Furthermore, a false negative results may occur if a specimen is improperly collected, transported or handled. If the virus mutates in the RT-PCR target region, SARS-CoV-2 may not be detected or may be detected less predictably. Inhibitors or other types of interference may produce a false negative result. An interference study evaluating the effect of common cold medications was not performed. This test is not FDA-cleared but its performance characteristics were established by our CLIA-certified, CAP-accredited, high complexity laboratory in accordance with CLIA regulations, [employer] of [employer] an [employer] (CAP) guidel nadia (Nov 04, 2019), and FDA guidance (Oct 16, 2019). This test is only for use un bairon the Food and Drug Administration's Emergency Use Authorization. Specimen Swab - Entire nasopharynx (body structur e) Performing Organization Address City/State/ZIP Code Phon e Number [facility] [place], [place] COVID-19 TESTING (07/26/2020 9:30 EST) COVID-19 rt-PCR NEGATIVE Negative [facility] Result Comment: LABORATORY 2019-novel Coronavirus (2019 -nCoV) not detected by the qRT-PCR assay. Consider testing for other respiratory viruses or re-collecting for 2019-nCoV testing. Note: Optimum timing for peak viral levels du ring infections caused by 20 -nCoV have not been determined. Collection of multiple specimens from the same patient may be necessary to detect the virus. Limitations Positive results are indicat ibrahima of active infection with SARS-CoV-2 but do not rule out bacterial infection or co-infection with other viruses. The agent detected may not be the definite cause of diseas e. In addition, detection of viral RNA may not indicate the presence of infectious virus or that SARS-CoV-2 is the causative agent for clinical symptoms. Negative results do not prec lude SARS-CoV-2 infection and should not be used as the sole basis for patient management decisions. Negative results must be combined with clinical observations, patient his tory, and epidemiological in formation. False negative results may also occur if amplification inhibitors are present in the specimen or if inadequate numbers of organisms are present in the specimen. Op timum specimen types and sal ing for peak viral levels during infections caused by SARS-CoV-2 have not been fully determined. Collection of multiple specimens (types and time points) from the same patient may be necessary to detect the virus. The test was validated for u with upper respiratory specimens obtained via nasopharyngeal or oropharyngeal swabs in VTM, UTM, M4, M5, M6, saline, and MTM media. The performance of this test has not be en established for other spe cimens. Specimens collected using other FDA recommended Specimen Collection Materials listed in the FDA COVID-19 [employer] communication (November 11, 2019) are pr ocessed with the caveat that they were not all validated for use with this test and the result must be interpreted in this context. Furthermore, a false negative results may occur if a specimen is improperly collected, transported or handled. If the virus mutates in the RT-PCR target region, SARS-CoV-2 may not be detected or may be detected less predictably. Inhibitors or other types of interference may produce a false negative result. An interference study evaluating the effect of common cold medications was not performed. This test is not FDA-cleared but its performance characteristics were established by our CLIA-certified, CAP-accredited, high complexity laboratory in accordance with CLIA regulations, [employer] of [employer] an [employer]ologists (CAP) guidel nadia (Nov 04, 2019), and FDA guidance (Oct 16, 2019). This test is only for use un bairon the Food and Drug Administration's Emergency Use Authorization. Performing Lab [facility] LABORATORY SERVICES Specimen Swab Performing Organization Address City/State/ZIP Code Phon e Number [facility] [address] [place] [address] SERVICES [facility] [place], [place] documented in this encounter Visit Diagnoses Not on filedocumented in this encounter Additional Health Concerns Infection Onset Date Last Indicated Resolved Time COVID-19 11/23/2021 11/23/2021 12/13/2021 22:15 EDT documented as of this encounter Care Teams Industrial Controller Relationship Specialty Start Date End Date Yessenia Alston MD PCP - General 07/15/18 [address] [place] [address] documented as of this encounter
--- OUTSIDE RECORDS SUMMARY | 2022-03-15 00:48 | XMS_ITS | Encounter Summary ---
:1975 Author Organization [facility] [place] [address] Care Team Providers Name Role Phone Yessenia Alston MD Primary Care Provider Reason for Visit Reason Comments GI Problem Encounter Details Date Type Department Care Team Description 05/21/2013 Office Visit Gastroenterology at [facility] Vicky Spivey, Colon cancer screening; [facility] Vivian raines APRN Abdominal bloating; [place] [phone] [facility] Abdominal discomfort [phone] [place] [address] Social History Tobacco Use Types Packs/Day Years Used Date Never Smoker Alcohol Use Standard Drinks/Week Comments Yes 0 (1 standard drink = 0.6 oz pure alcoho l) Sex Assigned at Date Recorded Not on file documented as of this encounter Last Filed Vital Signs Vital Sign Reading Time Taken Comments Blood Pressure 121/78 05/21/2013 9:05 AM EDT Pulse 103 05/21/2013 9:05 AM EDT Temperature - - Respiratory Rate - - Oxygen Saturation - - Inhaled Oxygen Concentration - - Weight 71.2 kg (157 lb) 05/21/2013 9:05 AM EDT Height 167.6 cm (5' 6) 05/21/2013 9:05 AM EDT Body Mass Index 25.34 05/21/2013 9:05 AM EDT documented in this encounter Patient Instructions Patient InstructionsVicky Spivey, NATHEN - 05/21/2013 9:48 AM EDT 1. FODMAP diet and copy provided 2. Broad spectrum probiotic such as Align, VSL#3 or Culturelle take 1 tablet daily; may take up to 12 weeks before improvement noted 3. Decrease fiber intake to less than 15 grams per day x 2 weeks 4. Recommend eating smaller more frequent 6-8 low fat meals. 5. Consider trying Peppermint tea or Peppermint oil enteric coated tablet 1 every 6 hours as needed (to help relax your GI tract) 6. Upper endoscopy and colonoscopy with biopsies 7. Follow up 2 weeks after testing Vicky Spivey APRN [phone] documented in this encounter Progress Notes Vicky Spivey APRN - 05/21/2013 7:43 AM EDT Subjective: Patient ID: Alan Quigley is a 37 y.o. woman who presents for further evaluation of her gastrointestinal symptoms at the request of Yessenia Alston APRN. HPI Comments: Mrs. Quigley is a pleasant 37 year woman who presents for consultation of her abdominal bloating that has been occurring intermittently for the past 7 years but over the past 6-7 months symptoms have worsened. Experiences abdominal bloating associated with distention but no gas or abdominal pain. Does feel uncomfortable. Discomfort located in upper abdomen. States my stomach looks flat then suddenly look like I am . She states symptoms are unpredictable. Can last up to five days then resolve. Unable to identify any specific triggers. Kept a food diary but was unable to identify any specific foods. No nocturnal symptoms. She reports no change in bowel habits. Has a formed bowel movement daily. Stools are not explosive. No straining or incomplete evacuation of stool. No h/o diarrhea or constipation. No blood in stool, rectal bleeding, rectal or anal pain. She reports needing a colonoscopy secondary to fmhx of colon cancer. Her mother was diagnosed with colon cancer at age 47. Avoided dairy products x 2 weeks but noted no improvement. Celiac serology negative. No food allergies or intolerances. No chronic NSAID's. Weight stable. Unable to lose weight despite eating a balanced diet and running. Denies heartburn, regurgitation, acid taste, chest pain, dysphagia, odynophagia, early satiety, nausea, vomiting, pre or post prandial symptoms. Diet recall: breakfast~glass of orange juice, bagel or toast with peanut butter; lunch~salad or sandwich with protein; dinner~protein, vegetable, starch. No soda. Allergies: NKDA Medications: reviewed in edh levothyroxine (SYNTHROID) 88 mcg tablet, Active; multivitamin (THERAGRAN) tablet, Active; DOCOSAHEXANOIC ACID/EPA (FISH OIL ORAL), Active; ERGOCALCIFEROL, VITAMIN D2, (VITAMIN D ORAL), Active; CALCIUM CARBONATE (CALCIUM 600 ORAL), Active PMHx: Surgical Hx: History Social History ??? Marital Status: Single Spouse Name: N/A Number of Children: N/A ??? Years of Education: N/A Occupational History ??? Not on file. Social History Main Topics ??? Smoking status: Never Smoker ??? Smokeless tobacco: Not on file ??? Alcohol Use: 0.0 oz/week 1-2 Glasses of wine per week ??? Drug Use: No ??? Sexually Active: Other Topics Concern ??? Not on file Social History Narrative ??? No narrative on file FMHx: no h/o esophageal cancer; IBD; celiac disease; liver or pancreatic disease Mother: colon cancer dx at age 47 Review of Systems Constitutional: Negative. HENT: Negative. Respiratory: Negative. Cardiovascular: Negative. Gastrointestinal: See HPI Musculoskeletal: Negative. Skin: Negative. Neurological: Negative. Hematological: Negative. Psychiatric/Behavioral: Negative. Vital Signs: BP 121/78; P 103; Wt 157; Ht 5'6 Objective: Physical Exam Vitals reviewed. Constitutional: She is oriented to person, place, and time. She appears well- developed and well-nourished. No distress. HENT: Head: Normocephalic and atraumatic. Mouth/Throat: Oropharynx is clear and moist. No oropharyngeal exudate. Eyes: Conjunctivae normal and EOM are normal. Pupils are equal, round, and reactive to light. Right eye exhibits no discharge. Left eye exhibits no discharge. No scleral icterus. Neck: Normal range of motion. Neck supple. No JVD present. No tracheal deviation present. No thyromegaly present. Cardiovascular: Normal rate, regular rhythm, normal heart sounds and intact distal pulses. Exam reveals no gallop and no friction rub. No murmur heard. Pulmonary/Chest: Effort normal and breath sounds normal. No stridor. No respiratory distress. She has no wheezes. She has no rales. She exhibits no tenderness. Abdominal: Soft. Bowel sounds are normal. She exhibits no distension and no mass. There is no tenderness. There is no rebound and no guarding. No succussion splash. No hepatosplenomegaly. Genitourinary: Rectal exam deferred. Lymphadenopathy: She has no cervical adenopathy. Neurological: She is alert and oriented to person, place, and time. No cranial nerve deficit. Skin: Skin is warm and dry. No rash noted. She is not diaphoretic. No erythema. No pallor. Psychiatric: She has a normal mood and affect. Her behavior is normal. Judgment and thought content normal. Assessment and Plan: Ms Quigley is a pleasant 37 year old woman who presents for consultation of her abdominal bloating that has been present for over 7 years but worsened over the past 6-7 months. Question functional bloating, IBS, food intolerances, SIBO or GERD. Discussed the etiology, pathophysiology, diagnostic tests and treatment of abdominal bloating. Will have her start the FODMAP diet and probiotic. Place order for EGD but if symptoms improves then consider cancelling egd. #Colon cancer screening: [facility] colon cancer~mother dx with colon cancer at age 47. Recommend colonoscopy and order placed. Plan: 1. FODMAP diet and copy provided 2. Broad spectrum probiotic such as Align, VSL#3 or Culturelle take 1 tablet qd; may take up to 12 weeks before improvement noted 3. Decrease fiber intake to less than 15 grams per day x 2 weeks 4. Recommend eating smaller more frequent 6-8 low fat meals. 5. Consider trying Peppermint tea or Peppermint oil enteric coated 1 tablet QID prn; consider Bentyl, Levsin or Librax prn 6. Colonoscopy with biopsies 7. EGD with biopsies 8. Follow up 2 weeks after testing Patient understands and is agreeable to the above plan. Written instructions provided. I spent a total of 56 minutes face to face with this patient; 30 minutes were spent counseling the patient in the medical problems described above. Thank you for the referral, Vicky Spivey APRN Section of [place]astroenterology [place] [address] documented in this encounter Plan of Treatment Not on filedocumented as of this encounter Visit Diagnoses Diagnosis Colon cancer screening Special screening for malignant neoplasm s, colon Abdominal bloating Flatulence, eructation, and gas pain Abdominal discomfort Abdominal pain, unspecified site documented in this encounter Care Teams Meteorology Teacher Relationship Specialty Start Date End Date Yessenia Alston MD PCP - General 05/19/13 [address] [place] [address] documented as of this encounter
--- OUTSIDE RECORDS SUMMARY | 2022-03-15 00:48 | XMS_ITS | Encounter Summary ---
:[address] [facility] Address [address] [place] [address] Care Team Providers Name Role Phone Unknown, Provider Primary Care Provider Encounter Details Date Type Department Care Team Description 07/13/2018 Results Only [facility] Shafer, [address] [place] [address] [place] [address] (Wo rk) Social History Tobacco Use Types Packs/Day Years Used Date Never Assessed Sex Assigned at Date Recorded Not on file documented as of this encounter Plan of Treatment Not on filedocumented as of this encounter Procedures Procedure Name Priority Date/Time Associated Diagnosis Comme [facility] SURGICAL PATHOLOGY Routine 07/13/2018 16:18 Resul ts for this EST procedure are i n the results section. documented in this encounter Results SURGICAL PATHOLOGY (07/13/2018 16:18 EST) Pathology Report: SURGICAL PATHOLOGY REPORT [facility] Reports generated via electronic interface contain diego ginal data; LABORATORY however they are lacking the format of the original re port. SERVICES Caution should be taken when reading/interpreting unfo rmatted reports. Name: ? KRAIG MCGOWAN ? Accession #: ? [id number] ? : ? 1975 (Age: 42) ??F ? Collect Date: ? 07/13/2018 ? Location: ? [facility] ? Receive Date: ? 018 ? Provider: BRITNI CALERO MD Copy to: SOILA POSADAS MD ? Final Pathologic Diagnosis: RECTUM, POLYP, BIOPSY: - Hyperplastic polyp. Document reviewed and electronically signed by: ROLO LEWIS MD Report ??Date: 07/15/2018 16:54 By the signature above, the attending physician certif ies that he/she has personally conducted a gross and/or microscopic examin ation of the described specimens and rendered or confirmed the above diagnosi s. Specimen(s) Received: Rectal polyp bx Clinical History: Mild diverticulosis and polyp Gross Description: ? Received in formalin labelled with proper patient identification (initials W, J) and rectal polyp is a single fragment of brown tissue measuring 0.3 x 0.2 x 0.2 cm. The specimen is submitted entirely in 1. CHAMP Chavez (ASCP) 07/14/2018 7:29 AM End of Report Specimen Performing Organization Address City/State/ZIP Code Phon e Number [facility] [address] [place] [address] SERVICES documented in this encounter Visit Diagnoses Not on filedocumented in this encounter Care Teams Slip Cover Seamstress Relationship Specialty Start Date End Date Unknown, Provider, PCP - General 07/12/13 07/14/18 documented as of this encounter
--- OUTSIDE RECORDS SUMMARY | 2022-03-15 00:48 | XMS_ITS | Encounter Summary ---
:1975 Author Organization [facility] [place] [address] Care Team Providers Name Role Phone Yessenia Alston MD Primary Care Provider Encounter Details Date Type Department Care Team Description 01/04/2020 Ancillary Procedure Radiology Library at [facility] [address] [address] [id number] [phone] Social History Tobacco Use Types Packs/Day Years Used Date Never Smoker Alcohol Use Standard Drinks/Week Comments Yes 0 (1 standard drink = 0.6 oz pure alcoho l) Sex Assigned at Date Recorded Not on file documented as of this encounter Plan of Treatment Not on filedocumented as of this encounter Procedures Procedure Name Priority Date/Time Associated Diagnosis Comme nts FILM LIBRARY Routine 01/04/2020 12:00 AM Results for this STORAGE ONLY MAMMO EDT procedure are in the results section. documented in this encounter Results Film Library- Storage Only Mammo (01/04/2020 12:00 AM EDT) Specimen (Source) Anatomical Location Collection Method / Collectio n Time Received Time / Laterality Volume Narrative RAD - 03/16/2020 2:13 PM EDT This exam is auto-finalizing. It's purpo se is for storage only. Yessenia Alston MD G FILM LIBRARY ORDERABLES Performing Organization Address City/State/ZIP Code Phon e Number [facility] [place], [place] documented in this encounter Visit Diagnoses Not on filedocumented in this encounter Care Teams Biomedical Field Service Engineer Relationship Specialty Start Date End Date Yessenia Alston MD PCP - General 05/19/[address] [place] [address] documented as of this encounter
--- OUTSIDE RECORDS SUMMARY | 2022-03-15 00:48 | XMS_ITS | Encounter Summary ---
:1975 Author Organization [facility] Address [address] [place] [address] Care Team Providers Name Role Phone Yessenia Alston MD Primary Care Provider Encounter Details Date Type Department Care Team Description 12/20/2019 Lab Requisition [facility] Outr Resulting Lab, Pathology & Laboratory Provider [facility] [address] [place], [place] [id number] Social History Tobacco Use Types Packs/Day Years Used Date Never Assessed Sex Assigned at Date Recorded Not on file documented as of this encounter Plan of Treatment Not on filedocumented as of this encounter Procedures Procedure Name Priority Date/Time Associated Diagnosis Comme nts HEPATITIS C AB W Routine 12/20/2019 12:10 Results for this REFLEX TO HCV RNA EDT procedure are in BY PCR the results section. HEPATITIS B SURFACE Routine 12/20/2019 12:10 Resu lts for this ANTIGEN EDT procedure are i n the results section. documented in this encounter Results HEPATITIS B SURFACE ANTIGEN (12/20/2019 12:10 EDT) Pathologist Sig nature Hep B Surface Ag Negative Negative [facility] SERVICES Specimen Blood - Venous blood (substance) Performing Organization Address City/[facility]/ZIP Code Phon e Number [facility] [address] [place] [address] SERVICES HEPATITIS C AB W REFLEX TO HCV RNA BY PCR (12/20/2019 12:10 EDT) Pathologist Sig nature Hep C Antibody Negative Negative [facility]Y SERVICES Specimen Blood - Venous blood (substance) Performing Organization Address City/[facility]/ZIP Code Phon e Number [facility] [address] [place] [address] SERVICES documented in this encounter Visit Diagnoses Not on filedocumented in this encounter Additional Health Concerns Infection Onset Date Last Indicated Resolved Time COVID-19 11/23/2021 11/23/2021 12/13/2021 22:15 EDT documented as of this encounter Care Teams Xray Tech Relationship Specialty Start Date End Date Yessenia Alston MD PCP - General 07/15/18 [address] [place], [place] [address] documented as of this encounter
--- OUTSIDE RECORDS SUMMARY | 2022-03-15 00:48 | XMS_ITS | Clinical Summary ---
:1975 Author Organization [facility] Address [address] [place] [address] Care Team Providers Name Role Phone Yessenia Alston MD Primary Care Provider Social History Tobacco Use Types Packs/Day Years Used Date Never Assessed Sex Assigned at Date Recorded Not on file Plan of Treatment Not on file Care Teams Front Office Java Developer Relationship Specialty Start Date End Date Yessenia Alston MD PCP - General 07/15/18 [address] [place] [address]
--- OUTSIDE RECORDS SUMMARY | 2022-03-15 00:48 | XMS_ITS | Encounter Summary ---
:1975 Author Organization [facility] Address [address] [place] [address] Care Team Providers Name Role Phone Yessenia Alston MD Primary Care Provider Encounter Details Date Type Department Care Team Description 12/16/2019 Lab Requisition [facility] Outr Resulting Lab, Pathology & Laboratory Provider [facility] [address] [place] [id number] Social History Tobacco Use Types Packs/Day Years Used Date Never Assessed Sex Assigned at Date Recorded Not on file documented as of this encounter Plan of Treatment Not on filedocumented as of this encounter Procedures Procedure Name Priority Date/Time Associated Comments Diagnosis CHLAMYDIA/N. Routine 12/16/2019 9:45 Results for this GONORRHOEAE AMPLIFIED EDT proced ure are in RNA the results section. documented in this encounter Results CHLAMYDIA/N. GONORRHOEAE AMPLIFIED RNA (12/16/2019 9:45 EDT) Pathologist Sig nature Gonococcus Result Negative Negative [facility] Chlamydia Result Negative Negative [facility] Specimen Swab - Entire endocervix (body structure ) Performing Organization Address City/State/ZIP Code Phon e Number [facility] [address] [place] [address] SERVICES documented in this encounter Visit Diagnoses Not on filedocumented in this encounter Additional Health Concerns Infection Onset Date Last Indicated Resolved Time COVID-19 11/23/2021 11/23/2021 12/13/2021 22:15 EDT documented as of this encounter Care Teams Buyer Renter Relationship Specialty Start Date End Date Yessenia Alston MD PCP - General 07/15/18 [address] [place] [address] documented as of this encounter
--- OUTSIDE RECORDS SUMMARY | 2022-03-15 00:48 | XMS_ITS | Encounter Summary ---
:1975 Author Organization [facility] Address [address] [place] [address] Care Team Providers Name Role Phone Yessenia Alston MD Primary Care Provider Encounter Details Date Type Department Care Team Description 11/24/2021 Lab Requisition [facility] Outr Resulting Lab, Pathology & Laboratory Provider [facility] [address] [place], [place] [id number] Social History Tobacco Use Types Packs/Day Years Used Date Never Assessed Sex Assigned at Date Recorded Not on file documented as of this encounter Plan of Treatment Not on filedocumented as of this encounter Procedures Procedure Name Priority Date/Time Associated Diagnosis Comme nts COVID-19 TEST [facility] Today 11/23/2021 10:00 LAB PCR EDT COVID-19 TESTING Routine 11/23/2021 10:00 Results for this EDT procedure are i n the results section. documented in this encounter Results COVID-19 TEST [facility] LAB PCR (11/23/2021 10:00 EDT) Specimen Swab Performing Organization Address City/State/ZIP Code Phon e Number [facility] [address] [place] [address] SERVICES (ABNORMAL) COVID-19 TESTING (11/23/2021 10:00 EDT) COVID-19 rt-PCR Presumptive Positive (AA) Negative [facility] Result Comment: LABORATORY Presumptive positive due to detection of Arevalo-Sarbecovirus.?? Suggest recollection if clinically indicated SERVICES This test has not been FDA c leared or approved. This test has been authorized by FDA under an EUA for use by authorized laboratories. This test has been authorized only for detection of nucleic acid fro m 2018-nCoV, not for any oth er viruses or pathogens. This test is only authorized for the duration of the declaration that circumstances exist justifying the authorization of emergency use of in vitro d iagnostic tests for detectio n and/or diagnosis of 2019-nCoV under section 564(b)(1) of Act, 21 U.S.C ?? 360bbb-3(b) (1), unless the authorization is terminated or revoked sooner. Testing was performed using the dylan SARS-CoV-2 assay ([employer] on the Dylan 6800 System Performing Lab Dylan [address] [facility] Lab [facility] SERVICES Specimen Swab Performing Organization Address City/State/ZIP Code Phon e Number [facility] [address] [place] [address] SERVICES documented in this encounter Visit Diagnoses Not on filedocumented in this encounter Additional Health Concerns Infection Onset Date Last Indicated Resolved Time COVID-19 11/23/2021 11/23/2021 12/13/2021 22:15 EDT documented as of this encounter Care Teams Emergency Room Tech Relationship Specialty Start Date End Date Yessenia Alston MD PCP - General 07/15/18 [address] [place], [place] [id number] documented as of this encounter
--- OUTSIDE RECORDS SUMMARY | 2022-03-15 00:48 | XMS_ITS | Encounter Summary ---
:1975 Author Organization [facility] Address [address] [place] [address] Care Team Providers Name Role Phone Yessenia Alston MD Primary Care Provider Encounter Details Date Type Department Care Team Description 12/20/2019 Lab Requisition [facility] Outr Resulting Lab, Pathology & Laboratory Provider [facility] [address] [place] [address] Social History Tobacco Use Types Packs/Day Years Used Date Never Assessed Sex Assigned at Date Recorded Not on file documented as of this encounter Plan of Treatment Not on filedocumented as of this encounter Procedures Procedure Name Priority Date/Time Associated Comments Diagnosis HIV 1/2 ANTIGEN AND Routine 12/20/2019 12:10 Resu lts for this ANTIBODY, 4TH EDT procedure are in GENERATION the results section. documented in this encounter Results HIV 1/2 ANTIGEN AND ANTIBODY, 4TH GENERATION (12/20/2019 12:10 EDT) HIV 1 and 2 Negative Negative [facility] Antibody/p24 Comment: LABORATORY Antigen, 4th SERVICES Generation If acute HIV-1 infection is suspected in a high risk ??patient, submit plasma specimen for HIV-1 RNA quantitation test. Fourth Generation assay performed on the [employer] Geoforce[employer] ur. Specimen Blood - Venous blood (substance) Performing Organization Address City/State/ZIP Code Phon e Number [facility] [address] [place] [address] SERVICES documented in this encounter Visit Diagnoses Not on filedocumented in this encounter Additional Health Concerns Infection Onset Date Last Indicated Resolved Time COVID-19 11/23/2021 11/23/2021 12/13/2021 22:15 EDT documented as of this encounter Care Teams Fellmongering Machine Operator Relationship Specialty Start Date End Date Yessenia Alston MD PCP - General 07/15/18 [address] [place] [address] documented as of this encounter
--- OUTSIDE RECORDS SUMMARY | 2022-03-15 00:48 | XMS_ITS | Encounter Summary ---
:1975 Author Organization [facility] [place] [address] Care Team Providers Name Role Phone Yessenia Alston MD Primary Care Provider Encounter Details Date Type Department Care Team Description 03/14/2020 Ancillary Procedure Radiology Library at [facility] [address] [address] [phone] Social History Tobacco Use Types Packs/Day Years Used Date Never Smoker Alcohol Use Standard Drinks/Week Comments Yes 0 (1 standard drink = 0.6 oz pure alcoho l) Sex Assigned at Date Recorded Not on file documented as of this encounter Plan of Treatment Not on filedocumented as of this encounter Procedures Procedure Name Priority Date/Time Associated Diagnosis Comme nts FILM Routine 03/14/2020 12:05 AM Results for this LIBRARY-STORAGE EDT procedure ar e in ONLY US BREAST the results section. documented in this encounter Results Film Library Storage Only US Breast (03/14/2020 12:05 AM EDT) Specimen (Source) Anatomical Location Collection Method / Collectio n Time Received Time / Laterality Volume Narrative RAD - 03/16/2020 2:11 PM EDT This exam is auto-finalizing. It's purpo se is for storage only. Yessenia Alston MD IMG FILM LIBRARY ORDERABLES Performing Organization Address City/State/ZIP Code Phon e Number [facility] [place], [place] documented in this encounter Visit Diagnoses Not on filedocumented in this encounter Care Teams Director Of Global Sales Relationship Specialty Start Date End Date Yessenia Alston MD PCP - General 10/2/[address] [place] [address] documented as of this encounter
--- OUTSIDE RECORDS SUMMARY | 2022-03-15 00:48 | XMS_ITS | Clinical Summary ---
:1975 Author Organization [facility] [place] [address] Care Team Providers Name Role Phone Yessenia Alston MD Primary Care Provider Allergies No known active allergies Medications Medication Sig Dispensed Refills Start Date End Date Status levothyroxine Take 88 mcg by 0 A ctive (SYNTHROID) 88 mcg mouth daily. tablet multivitamin Take 1 tablet by 0 Active (THERAGRAN) tablet mouth daily. DOCOSAHEXANOIC ACID/EPA Take 2 capsules 0 Active (FISH OIL ORAL) by mouth daily. ERGOCALCIFEROL, VITAMIN Take by mouth 0 Active D2, (VITAMIN D ORAL) daily. CALCIUM CARBONATE Take 1,200 mg by 0 Active (CALCIUM 600 ORAL) mouth daily. Active Problems Problem Noted Date Abdominal bloating 05/21/2013 Family History Medical History Relation Comments Breast Cancer Paternal Aunt Ovarian Cancer Neg Hx Relation Status Comments Paternal Aunt Social History Tobacco Use Types Packs/Day Years Used Date Never Smoker Alcohol Use Standard Drinks/Week Comments Yes 0 (1 standard drink = 0.6 oz pure alcoho l) Sex Assigned at Date Recorded Not on file Last Filed Vital Signs Vital Sign Reading [...] Mass Index 25.34 05/21/2013 9:05 AM EDT Plan of Treatment Health Maintenance Due Date Last Done Comments Covid-19 Vaccine (#1) 1980 HIV screen 1993 Hepatitis C Screening 1993 Tdap adult 1994 Tetanus vaccine 1994 HPV test 2005 PAP Smear 2005 Breast Cancer Share Decision Needed 2015 Colonoscopy 2020 Influenza (Flu) vaccine (1 of - Influenza standard 04/18/2022 series) Insurance Payer Benefit Plan / Subscriber ID Effective Dates Phone Addre ss Type Group CIGNA CIGNA PPO IND [id number] 2020-Present [phone] [address] [address] [place] [address] Care Teams Vehicle Assembly Inspector Relationship Specialty Start Date End Date Yessenia Alston MD PCP - General 05/19/[address] [place], [place] [address]
--- OUTSIDE RECORDS SUMMARY | 2022-03-15 00:48 | XMS_ITS | Encounter Summary ---
:1975 Author Organization [facility] Address [address] [place] [address] Care Team Providers Name Role Phone Unknown, Provider Primary Care Provider Encounter Details Date Type Department Care Team Description 12/19/2017 Results Only [facility]- Marcelina Ramirez MD [phone] [facility] [place], [place] [id number] (Wo rk) Social History Tobacco Use Types Packs/Day Years Used Date Never Assessed Sex Assigned at Date Recorded Not on file documented as of this encounter Plan of Treatment Not on filedocumented as of this encounter Procedures Procedure Name Priority Date/Time Associated Diagnosis Comme nts PAP TEST- RESULT Routine 12/19/2017 0:00 EDT Resu lts for this ONLY procedure are i n the results section. documented in this encounter Results PAP TEST- RESULT ONLY (12/19/2017 0:00 EDT) Pathology Report: CYTOPATHOLOGY REPORT [facility] Reports generated via electronic interface contain diego ginal data; SERVICES however they are lacking the format of the original re port. Caution should be taken when reading/interpreting unfo rmatted reports. Name: ? KRAIG MCGOWAN ? Accession #: ? [id number] ? : ? 1975 (Age: 42) ??F ?Collect Date: ? 2017 ? Location: ? [facility] ? Receive Date: ? 8 ? Provider: MARCELINA JADE MD Copy to: SOILA POSADAS MD ? Final Report SPECIMEN ADEQUACY ? Satisfactory for Evaluation - transformation zone component present GENERAL CATEGORIZATION ? Negative for Intraepithelial Lesion or Malignan cy ?? Hormonal/Contraceptive status: Intrauterine device Infection History: Pos for HPV: 2017 Specimen/Source: ??Pap Test, Cervix/Endocervix, ThinPr ep Imaging System with manual evaluation Document reviewed and electronically signed by: ? ERVIN Shane(ASCP) ? Report ??Date: 12/29/2017 12:38 HPV with Pap Test ? Date Ordered: ? 12/29/2017 ? Status: ?? Signed Out ?Date Complete: ? 12/30/2017 ? By: ??Sy stem Interface ? Date Reported: ? 12/30/2017 ? Interpretation RESULT: Negative for HPV. No E6 or E7 mRNA is detected from HPV types 16,18,31,3 3,35, 39,45,51,52,56,58,59,66, and 68 by corporate claims examiner media jona amplification. Comments Document reviewed and electronically signed by: ? System Interface ? Report date: 12/30/2017 By the signature above, the attending physician certif ies that he/she has personally conducted a gross and/or microscopic examin ation of the described specimens and rendered or confirmed the above diagnosi s. End of Report Specimen Performing Organization Address City/State/ZIP Code Phon e Number [facility] [address] [place] [address] SERVICES documented in this encounter Visit Diagnoses Not on filedocumented in this encounter Care Teams High Density Finishing Operator Relationship Specialty Start Date End Date Unknown, Provider, PCP - General 07/12/13 07/14/18 documented as of this encounter
--- OUTSIDE RECORDS SUMMARY | 2022-03-15 00:48 | XMS_ITS | Encounter Summary ---
:1975 Author Organization [facility] Address [address] [place] [address] Care Team Providers Name Role Phone Unknown, Provider Primary Care Provider Encounter Details Date Type Department Care Team Description 07/09/2017 Hospital Encounter [facility] [place] Unknown, Provider, Brian Pancho DELGADO [address] [facility] [phone] [place] [address] (Work) [phone] Social History Tobacco Use Types Packs/Day Years Used Date Never Assessed Sex Assigned at Date Recorded Not on file documented as of this encounter Discharge Disposition Disposition Code Departure Means Destination Home or Self Longterm documented in this encounter Plan of Treatment Not on filedocumented as of this encounter Visit Diagnoses Not on filedocumented in this encounter Care Teams Administrative Personal Assistant Relationship Specialty Start Date End Date Unknown, Provider, PCP - General 07/12/13 07/14/18 documented as of this encounter
--- NOTE | 2022-03-15 08:28 | DI.MAMMO_ITS ---
Exam(s) MAMMO SCREENING EXAM: MAMMO SCREENING CLINICAL HISTORY: screening TECHNIQUE: Bilateral full field digital CC and MLO mammographic images were obtained with 3D tomosyn thesis and utilizing computer aided detection (CAD). COMPARISON: Available for comparison. FINDINGS: Masses/Architectural Distortion: None seen. Microcalcifications: No suspicious pleomorphic-type are seen. Skin Thickening/Nipple Retraction: None. IMPRESSION: 1. No significant interval change with no specific features of malignancy noted. 2. Unless there is more urgent need, screening mammography is recommended, as per [employer] guidelines. BI-RADS Category 1 - Negative Breast Density - Category C - Heterogeneously dense Breast density category C or D implies that the patient has dense breast tissue. Dense breast tissue is very common and is not abnormal but dense breast tissue can make it harder to find cancer on a ma mmogram. Also, dense breast tissue may increase their breast cancer risk. This information about the result of the mammogram report was provided to the patient to raise their awareness. Use this report when you speak with the patient about their risks for breast cancer, which includes their family hist ory. At that time, you may recommend for more screening tests (Ultrasound or MRI) as they might be us eful based on their risk. A negative radiographic report should not delay biopsy if a dominant or clinically suspicious mass is present. Up to ten percent of cancers are not identified on mammography. A negative report may reinforce clinical impression. Adenosis and dense breasts may obscure an underlying neoplasm. False positive reports average 6 to 10%. Patient will receive a letter notifying them of these results.
== END ==
PROVIDERS: Visit Provider Obstetrics & Gynecology Gynecology
DX: Z12.31 Encounter for screening mammogram for malignant neoplasm of breast (principal)
CPT/HCPCS: 77063; 77067

== ENCOUNTER 2022-05-08 03:32 | Outpatient (CLI) | payer OTHER, SELFPAY ==
[2022-05-08 08:55] LABS: Hemoglobin A1C 5.2 % (<5.7)
[2022-05-08 09:07] LABS: Anion Gap 8.4 mmol/L (3-11); BUN 15 mg/dL (7-18); CO2 26.6 mmol/L (21.0-32.0); CREATININE 0.7 mg/dL (0.55-1.02); Calcium 8.7 mg/dL (8.5-10.1); Calculated LDL 144 mg/dL (<100); Chloride 105 mmol/L (98-107); Cholesterol 208 mg/dL (<200); Estimated GFR 107.95 (mL/min/1.73m2); Glucose 95 mg/dL (74-106); HDL Cholesterol 51 mg/dL (40-60); Sodium 140 mmol/L (136-145); TSH 2.13 uIU/mL (0.36-3.74); Triglyceride 67 mg/dL (<150)
[2022-05-08 10:10] LABS: FREE T4 1.15 ng/dL (0.76-1.46)
== END 2022-05-08 03:33 | disposition home or self-care (01) ==
LOC: LBO 03:32
PROVIDERS: PCP Nurse Practitioner Family; Visit Provider Nurse Practitioner Family
DX: Z00.00 Encounter for general adult medical examination without abnormal findings (principal); E78.5 Hyperlipidemia, unspecified; E03.9 Hypothyroidism, unspecified; Z13.1 Encounter for screening for diabetes mellitus
CPT/HCPCS: 36415; 80048; 80061; 83036; 84439; 84443

== ENCOUNTER 2023-09-03 08:18 | Day surgery (SDC) | payer BC, SELFPAY ==
[2023-09-03 08:40] VITALS: BP 118/99; RESP 16; TEMP 36.5; O2SAT 98
[2023-09-03] MEDS: Lactated Ringers 1,000 ML 80 ML IV (08:50)
--- NOTE | 2023-09-03 09:38 | W.ANESPRE ---
General Info Date of Service Date Performed: 09/03/23 Height: 5 ft 6 in Weight: 80.6 kg Body Mass Index (BMI): 28.6 Surgical Procedure: Operation Date: 09/03/23 10:35 Proposed Procedure Side Surgeon p Zeb Bates MD Meds Allergies and Home Medications Allergies Allergy/AdvReac Type Severity Reaction Status Date / Time methotrexate Allergy Intermediate rash, Verified 09/03/23 08:38 severe Home Medication Medication Instructions Recorded levonorgestrel 21 mcg/24 hours (8 1 device intrauterine ONCE #1 ea 06/21/22 yrs) 52 mg intrauterine device (Mirena) levothyroxine 125 mcg tablet 125 mcg PO DAILY #90 tabs 10/25/22 ascorbic acid (vitamin C) 1,000 mg 1 g PO DAILY 08/27/23 capsule cholecalciferol (vitamin D3) 50 100 mcg PO DAILY 08/27/23 mcg (2,000 unit) capsule Current Visit Medications: Current Medications Generic Name Dose Route Start Last Admin Trade Name Freq PRN Reason Stop Dose Admin Ringer's Solution 1,000 mls @ 80 mls/hr 09/03/23 06:00 09/03/23 08:50 IV 10/02/23 23:59 80 mls/hr INFUSION DARLYN Administration IV Miscellaneous Supplies 1 each 09/03/23 06:00 Iv Access IV 10/02/23 23:59 DIRECTED DARLYN Sodium Chloride 0 ml 09/03/23 06:00 Normal Saline Flush 10 Ml Syr IV 10/02/23 23:59 PRN PRN Sodium Chloride 0 ml 09/03/23 06:00 Normal Saline 10 Ml Vial IJ 10/02/23 23:59 DIRECTED PRN Sterile Water 0 ml 09/03/23 06:00 Water,Injection,Sterile 10 Ml Vial IJ 10/02/23 23:59 DIRECTED PRN PFSH Active Problems Active Problems: Problem Status Onset Code History of candidiasis of vagina Z86.19 Hyperlipidemia E78.5 Hypothyroidism Sigmoid diverticulosis K57.30 Globus sensation R09.89 IUD (intrauterine device) in place Z97.5 Medical History Medical History Remove/insert IUD 06/2022. new Mirena IUD placed Tubular adenoma of colon (2012) Surgical History Surgical History S/P excision of lipoma (2017) S/P colonoscopy (07/13/18) History of esophagogastroduodenoscopy (EGD) (07/09/13) History of endometrial ablation Tobacco Smoking/Tobacco Use Status: Never Passive smoking exposure: No Second hand exposure: Yes Alcohol Alcohol Intake: current Alcohol intake frequency: a few times a month Substance Use Substance use: Never Substance use type: does not use Prental History History 4 Para Hx # Term Pregnancies 3 Multiple births Hx # Pregnancies Ectopic pregnancies AB induced Hx Number of Living Children AB spontaneous Vital Signs and Lab Results Vital Signs Most Recent Vital Signs in EMR: Most Recent Vital Signs Temp Resp BP Pulse Ox 36.5 C 16 118/99 H 98 09/03/23 08:40 09/03/23 08:40 09/03/23 08:40 09/03/23 08:40 Lab Results Blood Type / Crossmatch: No Data to Display Complete Blood Count: No Data to Display Complete Metabolic Panel: No Data to Display Liver Function Panel: No Data to Display Coagulation Panel: No Data to Display Cardiac Panel: No Data to Display Arterial Blood Gas: No Data to Display Venous Blood Gas: No Data to Display Pancreas Panel: No Data to Display Thyroid Panel: No Data to Display Infectious Disease: No Data to Display Blood Cultures: No Data to Display Toxicology Panel: No Data to Display Panel: No Data to Display Anesthesia Assessment and Plan Anesthesia History Personal History: No History of Anesthesia Complications Family History: No Family History of Anesthesia Complications Exercise Tolerance Exercise Tolerance: Metabolic Equivalents>4 Pertinent Negatives Pertinent Negatives: No Symptoms of GERD, No Major Cardiovascular Symptoms or Complaints and No Major Pulmonary Symptoms or Complaints Cardiac & Pulmonary Exam Cardiac Exam: Normal S1/S2 Heart Sounds Pulmonary Exam: Clear Bilateral Breath Sounds Implantable Cardiac Device Does patient have a Pacemaker or an ICD?: No Airway Exam Known Difficult Airway: No Mallampati Class: 2 Mouth Opening: Normal (> 3cm) Thyromental Distance: Greater than 3 cm Neck Range of Motion: Full ROM Neck Circumference: Normal Teeth Condition: Normal Dentition ASA Classification ASA Score: ASA 2 Emergency Case?: No NPO Status NPO Status: NPO Clears >2 hours, Solids >8 hours Status Status: Pt. refuses testing, she was counseled on anesthesia risks Anesthesia Plan Resuscitation Status: Full Code Anesthesia Technique: General Anesthesia Airway Planned: Natural Airway Monitors Used: Standard Monitors
[2023-09-03 09:42] VITALS: BMI 28.6
--- NOTE | 2023-09-03 10:27 | COLE_ITS ---
Date of service: 09/03/23 Time of Service: 10:28 Colonoscopy Report Procedure Description: PROCEDURES PERFORMED: 1. Colonoscopy PREOPERATIVE DIAGNOSIS: Surveillance colonoscopy, family history POSTOPERATIVE DIAGNOSIS: Mild grade 1 internal hemorrhoids SURGEON: Keeley Bates MD INDICATION FOR PROCEDURE: the patient is a 48-year-old woman who has a family history of colon cancer in her mother. She has no symptoms. She has had 2 prior colonoscopies. She thinks she had polyps on the first 1. She is on a 5- year plan. FINDINGS: No new polyps. SURVEILLANCE interval/FOLLOW-UP: 5 years because of family history SPECIMENS: None EBL: Minimal COMPLICATIONS: None QUALITY of prep: Excellent Procedure in detail: The patient gave written consent and was in agreement with the indications, the potential risks as well as the benefits of the procedure. They were taken to the endoscopy suite and laid in the left lateral decubitus position. A timeout was performed and anesthesia was administered which was tolerated well. I started the procedure. Digital rectal and visual examination was performed and grossly within normal limits. A well-lubricated flexible colonoscope was then introduced and passed without any notable difficulty all the way to the cecum identified by the ileocecal valve and the appendiceal orifice. The scope was then slowly withdrawn with the above-noted findings. The patient tolerated the procedure well and was taken to the PACU in hemodynamically stable condition.
[2023-09-03 10:29] VITALS: BP 96/68; PULSE 88; RESP 16; TEMP 36.4; O2SAT 98
--- NOTE | 2023-09-03 10:33 | W.PM.DSUDISC ---
Date of service: 09/03/23 Time of Service: 10:33 Discharge Plan Disposition Patient Disposition: Home Condition: Good Discharge Details Attending Provider: Martin Bates Primary Care Provider: Ambreen Mendoza Home Meds and New Rx's Prescriptions: No Action Mirena 20 mcg/24 hours (8 yrs) 52 mg intrauterine device 1 device intrauterine ONCE Qty: 1 0RF Rx Instructions: as a single dose cholecalciferol (vitamin D3) 50 mcg (2,000 unit) capsule 100 mcg PO DAILY ascorbic acid (vitamin C) 1,000 mg capsule 1 g PO DAILY levothyroxine 125 mcg tablet 125 mcg PO DAILY Qty: 90 3RF Rx Instructions: take one tablet daily Discharge Instructions Additional Instructions: FINDINGS: No new polyps were found. Some minimal/mild internal hemorrhoids were noted which is extremely common, benign and nothing needs to be done about them as long as they do not cause you trouble. Repeat another colonoscopy in 5 years because of your family history. Stand Alone Forms: Colonoscopy Post Instructions Activity:: Activity as Tolerated Diet:: As Tolerated
--- NOTE | 2023-09-03 10:35 | W.ANESPOSTOP ---
Postoperative Evaluation Date, Time and Location Date Performed: 09/03/23 Time Performed: 10:35 Patient Location: Day Surgery Unit Vital Signs Most Recent Imported Vital Signs: Most Recent Vital Signs Temp Pulse Resp BP Pulse Ox 36.4 C L 88 16 96/68 L 98 09/03/23 10:29 09/03/23 10:29 09/03/23 10:29 09/03/23 10:29 09/03/23 10:29 Pain Score Most Recent Pain Score: Most Recent Pain Score Pain Level 0 09/03/23 10:29 Assessment Mental Status: Awake (Alert & Oriented to Patient Baseline) Airway and Respiratory Function: Patent airway with normal (patient baseline) respiratory exam Cardiovascular Function: Hemodynamically Stable Hydration Status: Adequately Hydrated Nausea & Vomiting: No Nausea or Vomiting Pain: Pt. Denies Any Pain Peripheral Nerve Block: Patient did not receive a nerve block
[2023-09-03 10:59] VITALS: BP 119/78; PULSE 75; RESP 16; TEMP 36.6; O2SAT 100
== END 2023-09-03 11:16 | disposition home or self-care (01) ==
PROVIDERS: PCP Nurse Practitioner Family; Visit Provider Student in an Organized Health Care Education/Training Program
PROC: 0DJD8ZZ Inspection of Lower Intestinal Tract, Via Natural or Artificial Opening Endoscopic (ICD-10-PCS; CPT 45378; principal; 2023-09-03 10:30)
DX: Z12.11 Encounter for screening for malignant neoplasm of colon (principal); K64.0 First degree hemorrhoids; Z86.010 Personal history of colon polyps; Z80.0 Family history of malignant neoplasm of digestive organs
CPT/HCPCS: 45378; 123; 00123; J2704

== ENCOUNTER → 2023-09-23 03:28 | Outpatient (CLI) | payer BC, SELFPAY ==
--- NOTE | 2023-09-23 07:55 | DI.RAD_ITS ---
Exam(s) XR CERVICAL SPINE COMP 4-5V EXAM: XR CERVICAL SPINE COMP 4-5V CLINICAL HISTORY: neck pain,m54.2. TECHNIQUE: 2D digital imaging was performed. Five views were performed. COMPARISON: CR CERVICAL SP. LIMITED (TRAUMA) from 12/13/2014 FINDINGS: BONES: No fracture or destructive lesion. Vertebral bodies show normal height. No neural foraminal narrowing. DISKS: Mild narrowing C5-6 disc space. Small endplate osteophytes. The remaining intervertebral dis c spaces are maintained. ALIGNMENT: Cervical spinal alignment is within normal limits. The odontoid and atlantoaxial articulat ions are normal. SOFT TISSUE: Normal. The lung apices are clear. IMPRESSION: Mild degenerative changes at C5-6. DATA REPOSITORY: RADIATION DOSE DELIVERED:
== END ==
PROVIDERS: PCP Nurse Practitioner Family; Visit Provider Nurse Practitioner Family
DX: M50.122 Cervical disc disorder at C5-C6 level with radiculopathy (principal)
CPT/HCPCS: 72050

== ENCOUNTER 2023-11-26 08:44 | Outpatient (CLI) | payer BC, SELFPAY ==
[2023-11-26 11:06] LABS: Anion Gap 9.1 mmol/L (3-11); BUN 13 mg/dL (7-18); CO2 26.9 mmol/L (21.0-32.0); CREATININE 0.7 mg/dL (0.55-1.02); Calcium 8.5 mg/dL (8.5-10.1); Calculated LDL 128 mg/dL (<100); Chloride 106 mmol/L (98-107); Cholesterol 212 mg/dL (<200); Estimated GFR 106.62 (mL/min/1.73m2); Glucose 101 mg/dL (74-106); HDL Cholesterol 49 mg/dL (40-60); Potassium 4.3 mmol/L (3.5-5.1); Sodium 142 mmol/L (136-145); TSH (W/Ref FT4) 1.54 uIU/mL (0.36-3.74); Triglyceride 179 mg/dL (<150)
== END 2023-11-26 08:45 | disposition home or self-care (01) ==
LOC: LBO 08:44
PROVIDERS: PCP Nurse Practitioner Family; Visit Provider Nurse Practitioner Family
DX: E78.5 Hyperlipidemia, unspecified (principal)
CPT/HCPCS: 36415; 80048; 80061; 84443

== ENCOUNTER 2024-02-25 09:11 | Outpatient (REF) | payer BC, SELFPAY ==
--- NOTE | 2024-02-25 08:20 | PAPFT_PTH ---
PATIENT: Alan Pinto LOC: [facility] U#:[id number] AGE/SX: 48/F ROOM: RE02/25/[address]: Samira Diehl : 1975 BED: DIS: 02/25/2024 SPEC #: [id number] RECD: 02/25/24 13:30 STATUS: JONELLE DIAZ #: [id number] DAFNE: 02/25/24 08:[address]: Samira Diehl DEPT: [facility] Cytology RECD BY: Ninfa Carty ENTERED: 02/25/24 13:30 SP TYPE: PAPFT LIANE DR: Ambreen Mendoza, REGIONAL MEDICAL DIRECTOR Tissues: 1 - CX/ENDOCX FOR PAP SMEARS Procedures: PAP THIN PREP/[facility] Screening HPV DNA PROBE Comments: [id number] (HPV 16 & 18/45)
== END 2024-02-25 09:12 | disposition home or self-care (01) ==
LOC: LBN 09:11
PROVIDERS: PCP Nurse Practitioner Family; Visit Provider Obstetrics & Gynecology Gynecology
DX: Z01.419 Encounter for gynecological examination (general) (routine) without abnormal findings (principal)
CPT/HCPCS: 88142; 87624

== ENCOUNTER 2024-07-20 01:46 | Outpatient (CLI) | payer BC, SELFPAY ==
--- NOTE | 2024-07-20 07:45 | DI.RAD_ITS ---
Exam(s) XR HIP RT COMPLETE AP PELVIS EXAM: XR HIP RT COMPLETE AP PELVIS CLINICAL HISTORY: chronic right hip pain,m25.551. TECHNIQUE: 2D digital imaging was performed. Two views COMPARISON: No exams were available for comparison FINDINGS: BONES: No acute fracture is present. No bony destructive lesion is seen. JOINTS: No dislocation present. The hip joint spaces are maintained. There is mild acetabular spur ring. Minimal degenerative changes are present in the inferior SI joints. SOFT TISSUE: Normal. IUD. IMPRESSION: No acute abnormality. Mild degenerative changes of both hips. DATA REPOSITORY: RADIATION DOSE DELIVERED:
--- NOTE | 2024-07-20 07:45 | DI.RAD_ITS ---
Exam(s) XR LUMBAR SPINE COMPLETE EXAM: XR LUMBAR SPINE COMPLETE CLINICAL HISTORY: low back pain,m54.50. TECHNIQUE: 2D digital imaging was performed. Five views. COMPARISON: No exams were available for comparison FINDINGS: BONES: No fracture or destructive lesion. Vertebral body heights are maintained. No facet hypertro phy identified . No spondylolysis. DISKS: Intervertebral disc spaces are maintained. No significant endplate osteophytes. ALIGNMENT: Lumbar spinal alignment is within normal limits. SOFT TISSUE: IUD noted. Large quantity of stool. IMPRESSION: Unremarkable radiographs of the lumbar spine. DATA REPOSITORY: RADIATION DOSE DELIVERED:
== END 2024-07-20 02:06 ==
LOC: DI 01:46
PROVIDERS: PCP Nurse Practitioner Family; Visit Provider Nurse Practitioner Family
DX: M54.50 Low back pain, unspecified (principal); M16.0 Bilateral primary osteoarthritis of hip
CPT/HCPCS: 72110; 73502

== ENCOUNTER 2024-07-26 15:12 | Outpatient (CLI) | payer BC, SELFPAY ==
--- NOTE | 2024-07-26 14:12 | DI.MRI_ITS ---
Exam(s) MR LOWER JOINT RT WO EXAM: MR LOWER JOINT RT WO CLINICAL HISTORY: assess for labral tear,chronic rt hippain, m25.551 TECHNIQUE: Multiplanar multisequence MRI of the hip was performed. COMPARISON: CR XR HIP RT COMPLETE AP PELVIS from 07/20/2024 FINDINGS: MARROW:There is no evidence of fracture, bone contusion, nor avascular necrosis. There are no signif icant osseous lesions.There is no significant osseous excrescence at the femoral head-neck junction t o suggest the presence of cam-type AZEEM. EFFUSION: There is no evidence of significant right hip joint effusion. BURSAE: There is no evidence of trochanteric bursitis. There is no evidence of iliopsoas bursitis. HIP JOINT SPACE: There is mild uniform thinning of the articular cartilage. There are degenerative s ubarticular cysts in the anterior superior right acetabulum. There is no hypertrophy of the ligament um teres nor signal abnormality at the fovea centralis. LABRUM: There are degenerative subarticular cysts in the superior aspect of the right hip acetabulum. Some of these are at the interface between twin the osseous acetabulum and the acetabular labrum.. Some thinning of the labrum at this levels also noted as well as posteriorly. TENDONS: No evidence of tendinitis nor tendon tears. ISCHIAL TUBEROSITY/HAMSTRING: There is no abnormal intraosseous signal in the ipsilateral ischial tub erosity nor tear of the common hamstrings tendon attachment site at this level. OTHER: There is no abnormal intramuscular signal within the quadratus femoris to suggest the presence of impingement syndrome at this level. There are multiple nabothian cysts noted throughout the cervix. There is an IUD in place. There is a right ovarian cyst which measures 3.8 by 3.4 by 4.4 cm. IMPRESSION: 1. Significant degenerative subarticular cysts in the superior right hip acetabulum with some thinnin g of the subjacent labrum. Suspicion for an element of labral tear. However if this patient is to b e a surgical candidate than I would recommend preprocedure post arthrogram MRI for added specificity/ sensitivity. DATA REPOSITORY:
== END 2024-07-26 15:32 ==
LOC: DI 15:14
PROVIDERS: PCP Nurse Practitioner Family; Visit Provider Nurse Practitioner Family
DX: M25.551 Pain in right hip (principal); G89.29 Other chronic pain
CPT/HCPCS: 73721

== ENCOUNTER 2024-08-10 03:12 | Outpatient (CLI) | payer BC, SELFPAY ==
--- NOTE | 2024-08-10 06:45 | DI.MRI_ITS ---
Exam(s) MR LUMBAR SPINE WO EXAM: MR LUMBAR SPINE WO CLINICAL HISTORY: low back pain,m54.50. TECHNIQUE: Multiplanar multisequence MRI of the Lumbar spine was performed. COMPARISON: CR XR LUMBAR SPINE COMPLETE from 07/20/2024 FINDINGS: Bones: The last intervertebral disc space is designated the L5/S1 level for the numbering purpose of this ex amination. The vertebral body heights are well maintained. Alignment: Unremarkable. The marrow signal characteristics are unremarkable. Cord: The conus tip ends at the T12 level. It is of normal size and signal intensity. T12-L1: No focal disc herniation is present. No central spinal canal stenosis.No neural foraminal st enosis. L1-2: No focal disc herniation is present. No central spinal canal stenosis.No neural foraminal sten osis. L2-3:Normal disc height. Focal right paracentral disc protrusion measuring 7 millimeters transverse by 4 millimeters AP by 9 millimeters cephalo caudad. No central spinal canal stenosis.No neural for aminal stenosis. L3-4: Minimal disc bulging.No focal disc herniation is present. No central spinal canal stenosis.No neural foraminal stenosis. L4-5:Minimal disc bulging. No focal disc herniation is present. Mild facet degenerative changes. M ild ligamentous hypertrophy. No central spinal canal stenosis.No neural foraminal stenosis. L5-S1: No focal disc herniation is present. No central spinal canal stenosis.No neural foraminal st enosis. The visualized SI joints and sacrum are unremarkable. Soft tissues: The paraspinal soft tissues are unremarkable. IMPRESSION: Small right paracentral disc protrusion at L2-3. No evidence of significant spinal stenosis or neuroforaminal narrowing at any level. DATA REPOSITORY:
== END 2024-08-10 03:32 ==
LOC: DI 03:12
PROVIDERS: PCP Nurse Practitioner Family; Visit Provider Nurse Practitioner Family
DX: M51.26 Other intervertebral disc displacement, lumbar region (principal)
CPT/HCPCS: 72148

== ENCOUNTER 2024-12-16 09:22 | Outpatient (CLI) | payer OTHER, SELFPAY ==
--- NOTE | 2024-12-16 16:16 | DI.RAD_ITS ---
Exam(s) XR SHOULDER RT COMPLETE 2+V EXAM: XR SHOULDER RT COMPLETE 2+V CLINICAL HISTORY: atraumatic M25.511 PAIN RT SHOULDER. TECHNIQUE: 2D digital imaging was performed. Five views. COMPARISON: No exams were available for comparison FINDINGS: BONES: No acute fracture is present. No bony destructive lesion is seen. JOINTS: No dislocation present. Mild spurring at the AC joint. Glenohumeral joint space is maintain ed and shows no significant degenerative changes. SOFT TISSUE: Normal. IMPRESSION: Mild degenerative changes of the AC joint. DATA REPOSITORY: RADIATION DOSE DELIVERED:
== END 2024-12-16 09:42 ==
LOC: DI 09:23
PROVIDERS: PCP Nurse Practitioner Family; Visit Provider Nurse Practitioner Family
DX: M25.511 Pain in right shoulder (principal)
CPT/HCPCS: 73030

== ENCOUNTER 2025-02-21 13:42 | Outpatient (CLI) | payer OTHER, SELFPAY ==
[2025-02-21 07:53] LABS: Anion Gap 8.9 mmol/L (3-11); BUN 11 mg/dL (7-18); CO2 25.1 mmol/L (21.0-32.0); Calcium 8.6 mg/dL (8.5-10.1); Chloride 104 mmol/L (98-107); Estimated GFR 105.95 (mL/min/1.73m2); Glucose 99 mg/dL (74-106); Potassium 3.9 mmol/L (3.5-5.1); Sodium 138 mmol/L (136-145); TSH (W/Ref FT4) 1.96 uIU/mL (0.36-3.74)
== END 2025-02-21 13:43 | disposition home or self-care (01) ==
LOC: LBO 13:43
PROVIDERS: PCP Nurse Practitioner Family; Visit Provider Nurse Practitioner Family
DX: E03.9 Hypothyroidism, unspecified (principal)
CPT/HCPCS: 36415; 80048; 84443